=== PATIENT | male | born 1970 | race Caucasian/White ===

== ENCOUNTER 2017-06-01 04:01 | Emergency (ER) | payer MEDICAID, OTHER ==
[~2017-06-01] VITALS: Ht 177.8 cm; Wt 97.5 kg
[~2017-06-01 04:01] MED LIST: ACET-2158 PO; ASPI81TA3 PO; CIPR500T4 PO; HYDR-3498 PO
[2017-06-01 04:04] VITALS: Ht 177.8 cm; Wt 97.5 kg
[2017-06-01] MEDS ORDERED: SOD CHLORIDE 0.9% 1,000 ML IV ONE ×2 (05:00→07:00)
[2017-06-01 05:27] LABS: BASOPHILS % 0.2 % (0.0-2.0); HEMATOCRIT 45.8 % (42.0-52.0); LYMPHOCYTES # 0.8 10^3/ul (0.8-2.9); LYMPHOCYTES % 19.4 % (15.0-51.0); MEAN CORPUSCULAR HEMOGLOBIN 30.5 pg (29.0-33.0); MEAN CORPUSCULAR HGB CONC 34.9 g/dl (32.0-37.0); MEAN CORPUSCULAR VOLUME 87.2 fl (82.0-101.0); MEAN PLATELET VOLUME 10.4 fl (7.4-10.4); MONOCYTE # 0.4 10^3/ul (0.3-0.9); MONOCYTES % 9.6 % (0.0-11.0); NEUTROPHILS % 68.8 % (39.0-77.0); PLATELET COUNT 190 10^3/UL (140-415); RED BLOOD COUNT 5.25 10^6/ul (4.70-6.10); RED CELL DISTRIBUTION WIDTH 12.1 % (11.5-14.5); WHITE BLOOD COUNT 4.1 10^3/ul (4.8-10.8)
[2017-06-01 05:48] LABS: ALANINE AMINOTRANSFERASE 110 IU/L (13-69); ALBUMIN 3.7 g/dl (3.3-4.9); ALBUMIN/GLOBULIN RATIO 0.97; ALKALINE PHOSPHATASE 144 IU/L (42-121); ANION GAP 11 (8-16); ASPARTATE AMINO TRANSFERASE 78 IU/L (15-46); BILIRUBIN,INDIRECT 0.3 mg/dl (0-1.1); BILIRUBIN,TOTAL 0.3 mg/dl (0.2-1.3); BLOOD UREA NITROGEN 8 mg/dl (7-20); CALCIUM 8.7 mg/dl (8.4-10.2); CARBON DIOXIDE 29 mmol/L (21-31); CHLORIDE 97 mmol/L (97-110); CREATININE 0.98 mg/dl (0.61-1.24); GLUCOSE 97 mg/dl (70-220); POTASSIUM 3.8 mmol/L (3.5-5.1); SODIUM 133 mmol/L (135-144); TOTAL PROTEIN 7.5 g/dl (6.1-8.1)
--- NOTE | 2017-06-01 05:48 | RADRPT ---
PROCEDURE: XR Chest. CLINICAL INDICATION: Sepsis TECHNIQUE: A single AP view of the chest was obtained. COMPARISON: None. FINDINGS: No focal airspace opacification, pleural effusion or pneumothorax is seen. The cardiomediastinal si lhouette is within normal limits for size. The osseous structures are unremarkable. IMPRESSION: Unremarkable chest x-ray. RPTAT: HH .April Chaudhary MD, MD Date Time Electronically viewed and signed by .April Chaudhary MD, on 06/01/2017 05:48 .G/
[2017-06-01 05:51] LABS: ADD UMIC NO; UR ASCORBIC ACID NEGATIVE (NEGATIVE); UR BILIRUBIN (Dip) NEGATIVE (NEGATIVE); UR BLOOD (Dip) NEGATIVE (NEGATIVE); UR CLARITY CLEAR (CLEAR); UR COLOR YELLOW (YELLOW); UR GLUCOSE (Dip) NEGATIVE (NEGATIVE); UR KETONES (Dip) NEGATIVE (NEGATIVE); UR LEUKOCYTE ESTERASE (Dip) NEGATIVE Leu/ul (NEGATIVE); UR NITRITE (Dip) NEGATIVE (NEGATIVE); UR RBC 0 /HPF (0-5); UR SPECIFIC GRAVITY (Dip) 1.012 (1.003-1.030); UR TOTAL PROTEIN (Dip) NEGATIVE (NEGATIVE); UR UROBILINOGEN (Dip) NEGATIVE (NEGATIVE)
[2017-06-01 05:56] LABS: PARTIAL THROMBOPLASTIN TIME 26.4 Sec (25.0-35.0); PROTIME 13.2 Sec (12.2-14.2)
[2017-06-01 06:00] LABS: TROPONIN-I < 0.012 ng/ml (0.00-0.12)
[2017-06-01] MEDS ORDERED: ACET-141 PO (06:03)
--- NOTE | 2017-06-01 06:22 | RADRPT ---
PROCEDURE: CT Abdomen and pelvis without contrast. CLINICAL INDICATION: Abdominal pain TECHNIQUE: CT scan of the abdomen and pelvis without contrast was performed on a multidetector hig h-resolution CT scan. . Coronal and sagittal reformatted images were obtained from the axial [facility] e images. Standard CT scan of the abdomen pelvis without contrast protocols were performed. The total exam CTDI equals 15.88 mGy and the total exam DLP equals 967.04 mGy-cm. One or more of the following dose reduction techniques were used: - Automated exposure control. - Adjustment of the mA and/or kV according to patient size. Use of iterative reconstruction technique. COMPARISON: CT abdomen pelvis 01/26/2015 FINDINGS: Status post appendectomy. The stomach, small bowel and large bowel are unremarkable. There are multiple mildly enlarged lymph nodes in the right mid and lower abdominal mesentery with m inimal diameters ranging between 1 and 1.3 cm. Findings may represent mesenteric adenitis. Note that there is no evidence of intra-abdominal free fluid, free air or abscesses. The kidneys are normal in size without evidence of calcified renal calculi or hydronephrosis bilater ally. There is a 2.3 cm cyst involving the lateral right kidney unchanged. No other intra renal mass es bilaterally. The urinary bladder is unremarkable. The prostate is unremarkable. The liver spleen pancreas adrenal glands and gallbladder are unremarkable. No evidence of biliary du ctal dilation. The aorta is unremarkable. There is a small fat containing left inguinal hernia without herniated ethan wel or strangulation. Lung bases are unremarkable. Degenerative changes lower thoracic and lumbar spine without acute osseous findings are osteoblastic /osteolytic lesions. IMPRESSION: 1. Status post appendectomy. 2. Mild lymphadenopathy involving the right mid and lower abdominal mesentery may represent mesente dara lymphadenitis. No evidence of free air, free fluid or abscesses. 3. No evidence of calcified renal calculi or obstructive uropathy. RPTAT:AAJJ Physician Janette Date Time Electronically viewed and signed by Physician Janette on 06/01/2017 06:21 BM/
[2017-06-01] MEDS ORDERED: BELLADONNA/PHENOBARBITAL TAB PO STA (06:46)
[2017-06-01] MEDS ORDERED: LIDOCAINE/MYLANTA 40 ML BTL PO STA (06:46)
[2017-06-01] MEDS ORDERED: FAMOTIDINE 20 MG TAB PO STA (06:46)
[2017-06-01] MEDS ORDERED: IBUPROFEN 600 MG TAB PO ONE (07:00)
[2017-06-01] MEDS ORDERED: CIPR500T21 PO (08:44)
[2017-06-01] MEDS ORDERED: IBUP-1542 PO (08:44)
--- NOTE | 2017-06-01 09:04 | ERD ---
ER Documentation Chief Complaint Date/Time DATE: 06/01/17 TIME: 09:02 Chief Complaint epigastric pain x 3 days, R hand numbness x 10 days, fever on/ off x 5 days HPI 47-year-old man with 3 days of epigastric abdominal pain and fever for a few days, patient states he is also had a cough and diarrhea. He has had no blood per rectum, no melena, no vomiting, no chest pain or shortness of breath, no rash, no headache or blurry vision. Patient denies neck pain or stiffness. ROS All systems reviewed and are negative except as per history of present illness. Medications Home Meds Active Scripts Ibuprofen* (Ibuprofen*) 600 Mg Tablet, 600 MG PO Q8 for FEVER, #30 TAB Prov:CHRISTINA PRIETO MD 06/01/17 Ciprofloxacin/Ciprofloxa HCl (Ciprofloxacin ER 500 mg Tablet) 500 Mg Tbmp.24hr, 500 MG PO BID, #10 TAB Prov:CHRISTINA PRIETO MD 06/01/17 Reported Medications Acetaminophen* (Acetaminophen*) 500 MG Extra Strength Tablet, 500 MG PO Q4H Y for PAIN AND OR ELEVATED TEMP, TAB 06/01/17 Discontinued Reported Medications Aspirin* (Aspirin* Chew) 81 Mg Tab.chew, 81 MG PO DAILY, TAB.CHEW 02/05/15 Discontinued Scripts Ciprofloxacin Hcl* (Ciprofloxacin Hcl*) 500 Mg Tablet, 500 MG PO BID, #10 TAB Prov:ADAL BLUM MD 01/28/15 Acetaminophen (TYLENOL 325 MG TAB) 325 Mg Tab, 500 MG PO Q6H Y for PAIN LEVEL 1- 3 OR FEVER, #30 TAB Prov:ADAL BLUM MD 01/28/15 Hydrocodone Bit/Acetaminophen (Anexsia 5-325 Mg Tablet) 1 Tab Tab, 1 TAB PO Q4H Y for PAIN LEVEL 6-10, #20 Prov:ADAL BLUM MD 01/28/15 Allergies Allergies: Coded Allergies: Penicillins (Verified Allergy, Severe, hallucinatiion, dizziness, chest pain, 06/01/17) PMhx/Soc None Medical and Surgical Hx: pt denies Medical Hx, pt denies Surgical Hx History of Surgery: No Anesthesia Reaction: No Hx Neurological Disorder: No Hx Respiratory Disorders: No Hx Cardiac Disorders: No Hx Psychiatric Problems: No Hx Miscellaneous Medical Probl: No Hx Alcohol Use: No Hx Substance Use: No Hx Tobacco Use: Yes Smoking Status: Current every day smoker FmHx Family History: No diabetes Physical Exam Vitals Vital Signs Date Time Temp Pulse Resp B/P Pulse Ox O2 Delivery O2 Flow Rate FiO2 06/01/17 05:33 100.6 98 19 135/73 100 Room Air 06/01/17 05:05 103.3 101 20 100 Room Air 06/01/17 04:04 103.0 122 20 148/85 97 Physical Exam GENERAL: Well-developed, well-nourished,Appears dehydrated, febrile HEENT:Dry mucous membranes, pink conjunctiva, no cervical spine tenderness or step-off deformities, no goiter, no jaundice or icterus, extraocular movements intact without pain. No submandibular induration, and no pharyngeal erythema NEURO: Alert and oriented 3, cranial nerves II through XII intact bilaterally, pupils equal round reactive to light, no focal deficits or facial asymmetry, sensation intact distally Strength 5/5 in upper and lower extremities bilaterally CARDIAC: tachycardic and regular no murmurs rubs or gallops LUNGS: Clear bilaterally no wheezing crackles or stridor ABDOMEN: Soft nontender, no guarding, no rigidity, no rebound, no psoas sign no obturator sign. Normoactive bowel sounds SKIN: Warm and dry to touch, no abrasions, contusions, or hematomas, no lacerations, no ecchymosis, no target lesions, and without ulcers EXTREMITIES: No clubbing cyanosis or edema, calves are bilaterally symmetrical, no Homans sign, no popliteal cord sign. Distal pulses equal and bilateral PSYCH: Normal affect without agitation or irritability Result Diagram: 06/01/17 0510 06/01/17 0510 Results 24 hrs Laboratory Tests Test 06/01/17 05:00 06/01/17 05:10 Urine Color YELLOW Urine Clarity CLEAR Urine pH 7.0 Urine Specific Reynolds 1.012 Urine Ketones NEGATIVEmg/dL Urine Nitrite NEGATIVEmg/dL Urine Bilirubin NEGATIVEmg/dL Urine Urobilinogen NEGATIVEmg/dL Urine Leukocyte Esterase NEGATIVELeu/ul Urine Microscopic RBC 0/HPF Urine Microscopic WBC 0/HPF Urine Hemoglobin NEGATIVEmg/dL Urine Glucose NEGATIVEmg/dL Urine Total Protein NEGATIVEmg/dl White Blood Count 4.110^3/ul Red Blood Count 5.2510^6/ul Hemoglobin 16.0g/dl Hematocrit 45.8% Mean Corpuscular Volume 87.2fl Mean Corpuscular Hemoglobin 30.5pg Mean Corpuscular Hemoglobin Concent 34.9g/dl Red Cell Distribution Width 12.1% Platelet Count 94075^3/UL Mean Platelet Volume 10.4fl Neutrophils % 68.8% Lymphocytes % 19.4% Monocytes % 9.6% Eosinophils % 0.0% Basophils % 0.2% Nucleated Red Blood Cells % 0.0/100WBC Neutrophils # (Manual) 2.810^3/ul Lymphocytes # 0.810^3/ul Monocytes # 0.410^3/ul Eosinophils # 0.010^3/ul Basophils # 0.010^3/ul Nucleated Red Blood Cells # 0.010^3/ul Prothrombin Time 13.2Sec Prothrombin Time Ratio 1.0 INR International Normalized Ratio 1.00 Activated Partial Thromboplast Time 26.4Sec Sodium Level 133mmol/L Potassium Level 3.8mmol/L Chloride Level 97mmol/L Carbon Dioxide Level 29mmol/L Anion Gap 11 Blood Urea Nitrogen 8mg/dl Creatinine 0.98mg/dl Glucose Level 97mg/dl Lactic Acid Level 1.2mmol/L Calcium Level 8.7mg/dl Total Bilirubin 0.3mg/dl Direct Bilirubin 0.00mg/dl Indirect Bilirubin 0.3mg/dl Aspartate Amino Transf (AST/SGOT) 78IU/L Alanine Aminotransferase (ALT/SGPT) 110IU/L Alkaline Phosphatase 144IU/L Troponin I < 0.012ng/ml Total Protein 7.5g/dl Albumin 3.7g/dl Globulin 3.80g/dl Albumin/Globulin Ratio 0.97 Current Medications Medications (Trade) Dose Ordered Sig/Trisha Route PRN Reason Start Time Stop Time Status Last Admin Dose Admin Sodium Chloride 1,000 ml @ 1,000 mls/hr Q1H ONCE IV 06/01/17 05:00 06/01/17 05:59 DC 06/01/17 05:07 Sodium Chloride (NS) 1,000 ml @ 2,000 mls/hr Q30M ONCE IV 06/01/17 07:00 06/01/17 07:29 DC 06/01/17 07:09 Ibuprofen (Motrin) 600 mg ONCE ONCE PO 06/01/17 07:00 06/01/17 07:01 DC 06/01/17 06:58 Famotidine (Pepcid) 40 mg ONCE STAT PO 06/01/17 06:46 06/01/17 06:50 DC 06/01/17 06:58 Miscellaneous Medication (Gi Cocktail (2)) 40 ml ONCE STAT PO 06/01/17 06:46 06/01/17 06:50 DC 06/01/17 06:58 Belladonna/ Phenobarbital () 2 tab ONCE STAT PO 06/01/17 06:46 06/01/17 06:50 DC 06/01/17 06:58 Procedures/MDM IV line was established patient was placed on monitoring engineer rhythm strip revealed a sinus tachycardia at 110 bpm with upright P and T waves. Patient was febrile. I administered 3 L normal saline intravenously, ibuprofen 600 mg p.o., GI cocktail 50 cc p.o., and famotidine 40 mg p.o. with good response. EKG performed, read by me revealed a sinus tachycardia at 104 bpm, normal axis, right ventricular conduction delay with a QRS duration of 102 ms, no concerning ST elevations or depressions noted. CBC reveals a leukopenia 4.1, electrolytes are unremarkable, Liver function tests revealed transaminitis, elevated alkaline phosphatase otherwise unremarkable, lactic acid low at 1.2 One AP view of the chest performed, read by me reveals no acute infiltrates, normal mediastinum, sharp costophrenic and cardiac borders, no air under the diaphragm. Otherwise unremarkable chest x-ray. CT scan of the abdomen and pelvis was performed that was unremarkable. Please refer to radiologist dictation for full report. Influenza AB swabs were negative. Patient's vital signs are normal at this time is been rehydrated, imaging studies were unremarkable, lactic acid was low, and vital signs have completely normalized. Patient has defervesced and feels better. Differential diagnoses considered, included but not limited to acute coronary syndrome, pulmonary embolism, aortic dissection, abdominal aortic aneurysm, sepsis, stroke, meningitis, encephalitis, pneumonia, appendicitis, cholecystitis , bowel obstruction, pyelonephritis, nephrolithiasis, cystitis, as well as metabolic, hematologic, and electrolyte abnormalities. As well as abscess, cellulitis, fractures, and dislocations. Patient feels much better at this time, and vital signs are normal, symptoms have improved. I did give strict instructions to return to the ED if symptoms continue or worsen, patient will otherwise follow-up with primary care physician. Patient understood instructions and agreed to plan. Disclaimer: Inadvertent spelling and grammatical errors are likely due to EHR/ dictation software use and do not reflect on the overall quality of patient care. Also, please note that the electronic time recorded on this note does not necessarily reflect the actual time of the patient encounter. Departure Diagnosis: Primary Impression: Diarrhea Diarrhea type: unspecified type Qualified Code: R19.7 - Diarrhea, unspecified type Condition: Good Patient Instructions: Dehydration (6Y-Adult), Traveler's Diarrhea (6Y-Adult) CHRISTINA PRIETO MD Jun 01, 2017 09:04
[2017-06-01 09:05] VITALS: BP 118/69; PULSE 98; RESP 18; TEMP 98.9
--- NOTE | 2017-06-01 09:44 | RADRPT ---
PROCEDURE: US Abdomen Limited . CLINICAL INDICATION: Abdominal pain TECHNIQUE: Multiple real-time images were acquired of the patient's right upper quadrant abdomen u tilizing a high resolution transducer. COMPARISON: CT June 01, 2017 FINDINGS: The liver measures 15.5 cm and demonstrates a normal echogenicity. The gallbladder is filled with a moderate amount of bile. No shadowing echogenic stones or masses are seen in the gallbladder. The gallbladder wall is not thickened at 1.9 mm. No pericholecystic fluid is noted. The common bile duct measures 4.0 mm in diameter. The visualized portions of the proximal pancreas are unremarkable. Th e tail of the pancreas is not well visualized. Antegrade flow is seen in the portal vein. Right kidney measures 13.6 cm. Right kidney demonstrates a normal echogenicity. A 2.4 cm simple cys t is seen in the midportion of the right kidney No hydronephrosis, masses or stones are noted. IMPRESSION: 2.4 cm simple cyst in the midportion of the right kidney. Tail of the pancreas not well visualized. If characterization of this structure is needed repeat exa m or CT/MRI is recommended. RPTAT: AA .Ollie Bhagat MD, MD Date Time Electronically viewed and signed by .Ollie Bhagat MD, MD on 06/01/2017 09:44 .P/
== END 2017-06-01 10:00 | disposition home or self-care (01) ==
LOC: E/R 04:01
DX: R19.7 Diarrhea, unspecified (principal); F17.210 Nicotine dependence, cigarettes, uncomplicated; R40.2142 Coma scale, eyes open, spontaneous, at arrival to emergency department; R40.2252 Coma scale, best verbal response, oriented, at arrival to emergency department; R40.2362 Coma scale, best motor response, obeys commands, at arrival to emergency department; Z79.82 Long term (current) use of aspirin
CPT/HCPCS: 36415; 71010; 74176; 76705; 80053; 81003; 83605; 84484; 85025; 85610; 85730; 87040; 87086; 87400; 93005; J7030; Z7502; Z7610

== ENCOUNTER 2017-06-02 20:07 | Inpatient (IN) | payer MEDICAID ==
[~2017-06-02] VITALS: Ht 175.3 cm; Wt 96.7 kg
[~2017-06-02 20:07] MED LIST changes: +ACET-141 PO; -ACET-2158 PO; -ASPI81TA3 PO; +CIPR500T21 PO; -CIPR500T4 PO; -HYDR-3498 PO; +IBUP-1542 PO
[2017-06-02] MEDS ORDERED: KETOROLAC 30 MG INJ IV STA (20:54)
[2017-06-02] MEDS ORDERED: ACETAMINOPHEN 500 MG TAB PO STA (20:54)
[2017-06-02] MEDS ORDERED: SOD CHLORIDE 0.9% 1,000 ML IV ONE ×3 (21:00→23:30)
--- NOTE | 2017-06-02 21:39 | RADRPT ---
PROCEDURE: XR Chest 1 View. CLINICAL INDICATION: Shortness of breath. TECHNIQUE: AP view of the chest was obtained. COMPARISON: June 01, 2017 FINDINGS: The cardiomediastinal silhouette is within normal limits. No consolidations are identified. No pneu mothorax is seen. Osseous structures are intact. IMPRESSION: No visualized active disease. RPTAT: AA .Ollie Bhagat MD, Date Time Electronically viewed and signed by .Ollie Bhagat MD, MD on 06/02/2017 21:38 .P/
[2017-06-02 22:25] LABS: ABNORMAL IP MESSAGE 1; HEMATOCRIT 40.1 % (42.0-52.0); MEAN CORPUSCULAR HEMOGLOBIN 29.7 pg (29.0-33.0); MEAN CORPUSCULAR HGB CONC 34.9 g/dl (32.0-37.0); MEAN CORPUSCULAR VOLUME 85.1 fl (82.0-101.0); PLATELET COUNT 149 10^3/UL (140-415); POSITIVE DIFF @See below; RED BLOOD COUNT 4.71 10^6/ul (4.70-6.10); RED CELL DISTRIBUTION WIDTH 12.1 % (11.5-14.5); WHITE BLOOD COUNT 4.9 10^3/ul (4.8-10.8)
[2017-06-02 22:42] LABS: INR 1.09; PARTIAL THROMBOPLASTIN TIME 30.3 Sec (25.0-35.0); PROTIME 14.1 Sec (12.2-14.2); PT RATIO 1.1
[2017-06-02 22:49] LABS: ALBUMIN/GLOBULIN RATIO 0.94; ANION GAP 10 (8-16)
[2017-06-02 23:08] LABS: ALANINE AMINOTRANSFERASE 135 IU/L (13-69); ALBUMIN 3.3 g/dl (3.3-4.9); ALKALINE PHOSPHATASE 192 IU/L (42-121); ASPARTATE AMINO TRANSFERASE 128 IU/L (15-46); BILIRUBIN,INDIRECT 0.4 mg/dl (0-1.1); BILIRUBIN,TOTAL 0.4 mg/dl (0.2-1.3); BLOOD UREA NITROGEN 8 mg/dl (7-20); CALCIUM 8.2 mg/dl (8.4-10.2); CARBON DIOXIDE 26 mmol/L (21-31); CHLORIDE 95 mmol/L (97-110); CREATININE 0.82 mg/dl (0.61-1.24); GLUCOSE 139 mg/dl (70-220); POTASSIUM 3.6 mmol/L (3.5-5.1); SODIUM 127 mmol/L (135-144); TOTAL PROTEIN 6.8 g/dl (6.1-8.1); TROPONIN-I < 0.012 ng/ml (0.00-0.12)
[2017-06-02 23:52] LABS: ADD UMIC NO; UR ASCORBIC ACID NEGATIVE (NEGATIVE); UR BILIRUBIN (Dip) NEGATIVE (NEGATIVE); UR BLOOD (Dip) NEGATIVE (NEGATIVE); UR CLARITY CLEAR (CLEAR); UR COLOR YELLOW (YELLOW); UR GLUCOSE (Dip) NEGATIVE (NEGATIVE); UR KETONES (Dip) NEGATIVE (NEGATIVE); UR LEUKOCYTE ESTERASE (Dip) NEGATIVE Leu/ul (NEGATIVE); UR NITRITE (Dip) NEGATIVE (NEGATIVE); UR SPECIFIC GRAVITY (Dip) 1.005 (1.003-1.030); UR TOTAL PROTEIN (Dip) NEGATIVE (NEGATIVE); UR UROBILINOGEN (Dip) NEGATIVE (NEGATIVE)
[2017-06-03] VITALS (13 sets, daily range): BP systolic 124–144; BP diastolic 73–94; PULSE 72–92; RESP 16–19; TEMP 97.1; Ht 175.3 cm; Wt 96.7 kg
[2017-06-03] MEDS ORDERED: AZTREONAM 1 GM/NS (PMX) 50 ML IVPB ONE
[2017-06-03] MEDS ORDERED: VANCOMYCIN 1 GM (PMX) 250 ML IVPB SCH
--- NOTE | 2017-06-03 | ERA ---
ER Documentation Chief Complaint Date/Time DATE: 06/02/17 Chief Complaint Fever and chills x 1 week HPI The patient is a 47-year-old male who presents to the Emergency Department with complaint of fever and chills for the past week. The patient reports that his symptoms initially began on Tuesday night, with onset of myalgias, fevers, chills. He admits to mild associated cough and diarrhea. Otherwise, he denies any rhinorrhea, sore throat, ear pain, neck pain, neck stiffness, new rashes. He admits to intermittent abdominal pain, though none at this time. Denies black or bloody stools, dysuria, hematuria, flank pain or vomiting. Denies chest pain, palpitations, shortness of breath, lower extremity swelling. Denies visual changes, diplopia, blurred vision, vision loss. Denies headache or dizziness. Denies any sick contacts with similar symptoms. Denies recent travel , stream water exposure, immunocompromised state or recent antibiotic use. He admits to recent unprotected sexual activity with a new female, though denies any testicular pain, testicular swelling or urethral discharge. Of note, the patient was seen in the Emergency Department last night, at which time CT abdomen and pelvis was performed, which revealed mild lymphadenopathy involving the right mid and lower abdominal mesentery, possibly representing mesenteric lymphadenitis. Otherwise, no evidence of free air, free fluid, abscesses, with no significant acute pathology noted. Chest x-ray, with no infiltrates. Influenza A/B were negative. The patient was ultimately discharged home with prescriptions for Ciprofloxacin and Ibuprofen. The patient reports that he has been taking the medications, with no significant relief. ROS All systems reviewed and are negative except as per history of present illness. Medications Home Meds Active Scripts Ibuprofen* (Ibuprofen*) 600 Mg Tablet, 600 MG PO Q8 for FEVER, #30 TAB Prov:CHRISTINA PRIETO MD 06/01/17 Ciprofloxacin/Ciprofloxa HCl (Ciprofloxacin ER 500 mg Tablet) 500 Mg Tbmp.24hr, 500 MG PO BID, #10 TAB Prov:CHRISTINA PRIETO MD 06/01/17 Reported Medications Acetaminophen* (Acetaminophen*) 500 MG Extra Strength Tablet, 500 MG PO Q4H Y for PAIN AND OR ELEVATED TEMP, TAB 06/01/17 Discontinued Reported Medications Aspirin* (Aspirin* Chew) 81 Mg Tab.chew, 81 MG PO DAILY, TAB.CHEW 5/20/15 Discontinued Scripts Ciprofloxacin Hcl* (Ciprofloxacin Hcl*) 500 Mg Tablet, 500 MG PO BID, #10 TAB Prov:ADAL BLUM MD 01/28/15 Acetaminophen (TYLENOL 325 MG TAB) 325 Mg Tab, 500 MG PO Q6H Y for PAIN LEVEL 1- 3 OR FEVER, #30 TAB Prov:ADAL BLUM MD 01/28/15 Hydrocodone Bit/Acetaminophen (Anexsia 5-325 Mg Tablet) 1 Tab Tab, 1 TAB PO Q4H Y for PAIN LEVEL 6-10, #20 Prov:ADAL BLUM MD 01/28/15 Allergies Allergies: Coded Allergies: Penicillins (Verified Allergy, Severe, hallucinatiion, dizziness, chest pain, 06/01/17) PMhx/Soc History of Surgery: Yes (Appy) Anesthesia Reaction: No Hx Neurological Disorder: No Hx Respiratory Disorders: No Hx Cardiac Disorders: No Hx Psychiatric Problems: No Hx Miscellaneous Medical Probl: No Hx Alcohol Use: No Hx Substance Use: No Hx Tobacco Use: Yes Smoking Status: Current every day smoker Physical Exam Vitals Vital Signs Date Time Temp Pulse Resp B/P Pulse Ox O2 Delivery O2 Flow Rate FiO2 06/02/17 20:10 103.9 138 28 162/94 98 Physical Exam GENERAL: Well-developed, well-nourished, male, in no acute distress. Non-toxic. HEENT: Head is normocephalic, atraumatic. No scleral pallor or icterus. Pupils equal, round and reactive to light. Extraocular movements intact. Conjunctiva pink. Bilaterally tympanic membranes are clear with no evidence of erythema, effusion or dulling of the light reflex. Moist mucous membranes. Posterior pharynx is erythematous with exudates noted bilaterally. Uvula is midline. No trismus. No stridor. No excessive drooling. Phonation is normal. No submandibular swelling. No brawny induration. NECK: Supple. No masses, no tenderness. Tender anterior cervical lymphadenopathy. Trachea midline. No nuchal rigidity. No meningismus. RESPIRATORY: Lungs are clear to auscultation bilaterally. No rales, rhonchi or wheezing. Equal breath sounds. Normal expiratory effort. CARDIOVASCULAR: Tachycardic. Regular rhythm. S1 and S2 normal. Distal pulses are palpable, 2+ bilaterally. Capillary refill is less than 2 seconds. GASTROINTESTINAL: Abdomen is soft, non-tender, and non-distended. No guarding, no rebound tenderness. Normal bowel sounds. No gross peritonitis. FLANK: No CVA tenderness. BACK: No midline tenderness. EXTREMITIES: No clubbing, cyanosis, or edema. Normal skin perfusion. Moving all extremities. Muscle tone is normal. No focal swelling or erythema. NEUROLOGIC: The patient is alert, awake, and oriented x 3. No focal neurologic deficits. INTEGUMENT: Skin is intact. Warm and dry. No rashes, no petechiae present. PSYCHIATRIC: Cooperative. Appropriate. Result Diagram: 06/02/17213906/02/172139 Results 24 hrs Laboratory Tests Test 06/02/17 21:40 06/02/17 21:45 06/02/17 23:26 White Blood Count 4.910^3/ul Red Blood Count 4.7110^6/ul Hemoglobin 14.0g/dl Hematocrit 40.1% Mean Corpuscular Volume 85.1fl Mean Corpuscular Hemoglobin 29.7pg Mean Corpuscular Hemoglobin Concent 34.9g/dl Red Cell Distribution Width 12.1% Platelet Count 77306^3/UL Mean Platelet Volume 11.0fl Neutrophils % % Lymphocytes % % Monocytes % % Eosinophils % % Basophils % % Nucleated Red Blood Cells % 0.0/100WBC Neutrophils # 10^3/ul Lymphocytes # 10^3/ul Monocytes # 10^3/ul Eosinophils # 10^3/ul Basophils # 10^3/ul Nucleated Red Blood Cells # 10^3/ul Prothrombin Time 14.1Sec Prothrombin Time Ratio 1.1 INR International Normalized Ratio 1.09 Activated Partial Thromboplast Time 30.3Sec Sodium Level 127mmol/L Potassium Level 3.6mmol/L Chloride Level 95mmol/L Carbon Dioxide Level 26mmol/L Anion Gap 10 Blood Urea Nitrogen 8mg/dl Creatinine 0.82mg/dl Glucose Level 139mg/dl Calcium Level 8.2mg/dl Total Bilirubin 0.4mg/dl Direct Bilirubin 0.00mg/dl Indirect Bilirubin 0.4mg/dl Aspartate Amino Transf (AST/SGOT) 128IU/L Alanine Aminotransferase (ALT/SGPT) 135IU/L Alkaline Phosphatase 192IU/L Troponin I < 0.012ng/ml Total Protein 6.8g/dl Albumin 3.3g/dl Globulin 3.50g/dl Albumin/Globulin Ratio 0.94 Monoscreen Negative Lactic Acid Level 2.2mmol/L Urine Color YELLOW Urine Clarity CLEAR Urine pH 6.0 Urine Specific [place] 1.005 Urine Ketones NEGATIVEmg/dL Urine Nitrite NEGATIVEmg/dL Urine Bilirubin NEGATIVEmg/dL Urine Urobilinogen NEGATIVEmg/dL Urine Leukocyte Esterase NEGATIVELeu/ul Urine Hemoglobin NEGATIVEmg/dL Urine Glucose NEGATIVEmg/dL Urine Total Protein NEGATIVEmg/dl Current Medications Medications (Trade) Dose Ordered Sig/Trisha Route PRN Reason Start Time Stop Time Status Last Admin Dose Admin Ketorolac Tromethamine (Toradol) 30 mg ONCE STAT IV 06/02/17 20:54 06/02/17 20:56 DC 06/02/17 21:24 Acetaminophen 1000 mg 1,000 mg ONCE STAT PO 06/02/17 20:54 06/02/17 20:56 DC 06/02/17 21:24 Sodium Chloride 1,000 ml @ 1,000 mls/hr Q1H ONCE IV 06/02/17 21:00 06/02/17 21:59 DC 06/02/17 21:25 Sodium Chloride 1,000 ml @ 1,000 mls/hr Q1H ONCE IV 06/02/17 23:30 06/03/17 00:29 DC 06/03/17 00:38 Sodium Chloride 1,000 ml @ 1,000 mls/hr Q1H ONCE IV 06/02/17 23:30 06/03/17 00:29 DC 06/03/17 00:38 Aztreonam 50 ml @ 100 mls/hr ONCE ONCE IVPB 06/03/17 00:00 06/03/17 00:29 DC 06/03/17 00:50 Vancomycin HCl (Vancocin) 250 ml @ 125 mls/hr ONCE IVPB 06/03/17 00:00 06/03/17 01:59 DC 06/03/17 01:47 Procedures/MDM The patient's case was reviewed and discussed with Dr. Velez, who agrees with the plan of care including labs, treatment and imaging as appropriate. He recommends admission for severe sepsis and bacteremia. DIAGNOSTIC TESTS AND INTERPRETATION: PROCEDURE: XR Chest 1 View. TECHNIQUE: AP view of the chest was obtained. COMPARISON: June 01, 2017 FINDINGS: The cardiomediastinal silhouette is within normal limits. No consolidations are identified. No pneumothorax is seen. Osseous structures are intact. IMPRESSION: No visualized active disease. .Ollie Bhagat MD, MD Date Time Electronically viewed and signed by .Ollie Bhagat MD, MD on 06/02/2017 21:38 Microbiology RAPID STREP ANTIGEN BY EIA Final RAPID STREP ANTIGEN ,EIA NEGATIVE (Ref Range Neg) EKG Reviewed and interpreted by: Dr. Velez EKG Interpretation: Sinus tachycardia. [address] bpm[address] Non-specific ST/T changes. No LBBB. EMERGENCY DEPARTMENT COURSE: IV access established by nursing staff. Crystalloid fluids (30 cc/kg), Tylenol and Toradol administered. Patient simon- cultured. Laboratory tests, EKG, chest x-ray, stool tests, rapid strep and throat culture ordered. MEDICAL DECISION MAKING: This is a 47-year-old male presenting to the Emergency Department with fever and chills for the past week. Patient was seen in the Emergency Department yesterday for similar symptoms, including those of myalgias , mild diarrhea, and cough. After laboratory testing and imaging, the patient was discharged home with a prescription for Ciprofloxacin, which he has been taking as directed. However, he returns today due to persistent fevers and myalgias. On presentation, patient was noted to be febrile, with temperature of 103.9F, and tachycardic. Physical examination notable for an erythematous posterior pharynx, with exudates noted bilaterally. He had anterior cervical lymphadenopathy. Otherwise, no trismus, stridor no stridor, no excessive drooling. Phonation is normal. He denies any sore throat. No evidence of peritonsillar abscess, Robert's angina, epiglottis, candidiasis. Patient denies any neck pain or neck stiffness. His neck was supple on examination, and he had no altered mentation, no meningismus, no nuchal rigidity. No clinical evidence of meningitis. Chest x-ray with no focal infiltrate/consolidation, no findings of pneumonia. Abdomen and pelvis CT performed yesterday, with no acute intraabdominal or pelvic pathology noted. Patient has a benign abdominal examination, with no guarding, no rebound tenderness, no peritoneal signs. No evidence of acute/surgical abdomen. Doubt diverticulitis, exam inconsistent. Doubt ischemic bowel, no pain out of proportion to examination. Influenza A/B testing performed yesterday were noted to be negative. Rapid strep today was negative. Throat culture sent. Monoscreen negative. Stool tests ordered, and pending as patient has not been able to provide samples. Upon review of patient' s records from yesterday, patient's blood cultures grew gram negative rods. Patient was simon-cultured. Lactic acid sent (2.2). Presentation consistent with severe sepsis, bacteremia, pharyngitis, diarrhea. At this time, the patient will be admitted to Telemetry, under the care of Dr. Will, for further evaluation and management. Patient's infectious symptoms have not stabilized and the patient is at risk of rapid decompensation. The patient will be admitted for careful hydration, antibiotic therapy, and infectious source control. Severe Sepsis Assessment: Infectious Source: Bacteremia. Pharyngitis. Diarrhea. End organ damage indicated by: Lactate > 2.0 mmol/L Severe Sepsis Management: Blood Cultures X 2 before broad spectrum antibiotics initiated. 30 ml/kg NS bolus Completed Initial Lactate: 2.2 Repeat Lactate Pending Critical Care: Time: 40 minutes Treatments/Evaluations: Emergent fluid management, while maintaining close respiratory support. Immediate broad spectrum antibiotic therapy. Simultaneous assessment for possible sources in order to direct therapy. Consideration for invasive and chemical support to prevent respiratory or cardiac collapse. Patient does not have septic shock. Accepting Care Team: Current data and ongoing care discussed by Dr. Velez with Dr. Will. Primary Provider: Dr. Will Departure Diagnosis: Primary Impression: Severe sepsis Additional Impressions: Bacteremia Pharyngitis Qualified Code: J02.9 - Pharyngitis, unspecified etiology Hyponatremia Transaminitis Diarrhea Qualified Code: R19.7 - Diarrhea, unspecified type Condition: Stable TOMY MEYER PA-C Jun 03, 2017 00:00 TOMY MEYER PA-C Jun 03, 2017 00:00
[2017-06-03] MEDS ORDERED: morphine 2 MG INJ IV PRN (04:30)
[2017-06-03] MEDS ORDERED: ONDANSETRON 4 MG INJ IV PRN (04:30)
--- NOTE | 2017-06-03 06:14 | ERA ---
ER Documentation Chief Complaint Date/Time DATE: 06/03/17 TIME: 06:11 Chief Complaint Fever and chills x 1 week HPI The patient is a 47-year-old male, presenting to the ER with fever for 1 week, diarrhea for the last 3 days. He was seen in the ER yesterday had blood culture , treated and discharged. He came back today because he did not feel better. He was initially seen by the [facility]. He denies hematochezia, cough, sore throat, neck pain, chest pain. He had abdominal pain yesterday but denies any abdominal pain today, denied dysuria. He does not smoke nor drink or use any illicit drug, denies any history of IV drug abuse Past medical history: None Past surgical history appendectomy ROS All systems reviewed and are negative except as per history of present illness. Medications Home Meds Active Scripts Ibuprofen* (Ibuprofen*) 600 Mg Tablet, 600 MG PO Q8 for FEVER, #30 TAB Prov:CHRISTINA PRIETO MD 06/01/17 Ciprofloxacin/Ciprofloxa HCl (Ciprofloxacin ER 500 mg Tablet) 500 Mg Tbmp.24hr, 500 MG PO BID, #10 TAB Prov:CHRISTINA PRIETO MD 06/01/17 Reported Medications Acetaminophen* (Acetaminophen*) 500 MG Extra Strength Tablet, 500 MG PO Q4H Y for PAIN AND OR ELEVATED TEMP, TAB 06/01/17 Discontinued Reported Medications Aspirin* (Aspirin* Chew) 81 Mg Tab.chew, 81 MG PO DAILY, TAB.CHEW 02/05/15 Discontinued Scripts Ciprofloxacin Hcl* (Ciprofloxacin Hcl*) 500 Mg Tablet, 500 MG PO BID, #10 TAB Prov:ADAL BLUM MD 01/28/15 Acetaminophen (TYLENOL 325 MG TAB) 325 Mg Tab, 500 MG PO Q6H Y for PAIN LEVEL 1- 3 OR FEVER, #30 TAB Prov:ADAL BLUM MD 01/28/15 Hydrocodone Bit/Acetaminophen (Anexsia 5-325 Mg Tablet) 1 Tab Tab, 1 TAB PO Q4H Y for PAIN LEVEL 6-10, #20 Prov:ADAL BLUM MD 01/28/15 Allergies Allergies: Coded Allergies: Penicillins (Verified Allergy, Severe, hallucinatiion, dizziness, chest pain, 06/01/17) PMhx/Soc History of Surgery: Yes (appendectomy) Anesthesia Reaction: No Hx Neurological Disorder: Yes (right arm pins and needles, numbness) Hx Respiratory Disorders: Yes (sob at times; feels like choking) Hx Cardiac Disorders: No Hx Psychiatric Problems: No Hx Miscellaneous Medical Probl: No Hx Alcohol Use: No Hx Substance Use: No Hx Tobacco Use: No Smoking Status: Never smoker Physical Exam Vitals Vital Signs Date Time Temp Pulse Resp B/P Pulse Ox O2 Delivery O2 Flow Rate FiO2 06/02/17 20:10 103.9 138 28 162/94 98 Physical Exam Const: No acute distress. Head: Atraumatic. Eyes: Normal Conjunctiva. ENT: Normal External Ears, Nose and Erythematous pharynx Neck: Full range of motion. No meningismus. Resp: Clear to auscultation bilaterally. Cardio: Regular rate and rhythm. Abd: Soft, non distended, normal bowel sounds, non tender. Skin: No petechiae or rashes. Back: No midline or flank tenderness. Ext: No cyanosis, or edema. Neur: Awake and alert. No focal deficit Psych: Normal Mood and Affect. Result Diagram: 06/02/17213906/02/172139 Results 24 hrs Laboratory Tests Test 06/02/17 21:40 06/02/17 21:45 06/02/17 23:26 White Blood Count 4.910^3/ul Red Blood Count 4.7110^6/ul Hemoglobin 14.0g/dl Hematocrit 40.1% Mean Corpuscular Volume 85.1fl Mean Corpuscular Hemoglobin 29.7pg Mean Corpuscular Hemoglobin Concent 34.9g/dl Red Cell Distribution Width 12.1% Platelet Count 56298^3/UL Mean Platelet Volume 11.0fl Neutrophils % % Lymphocytes % % Monocytes % % Eosinophils % % Basophils % % Nucleated Red Blood Cells % 0.0/100WBC Neutrophils # 10^3/ul Lymphocytes # 10^3/ul Monocytes # 10^3/ul Eosinophils # 10^3/ul Basophils # 10^3/ul Nucleated Red Blood Cells # 10^3/ul Prothrombin Time 14.1Sec Prothrombin Time Ratio 1.1 INR International Normalized Ratio 1.09 Activated Partial Thromboplast Time 30.3Sec Sodium Level 127mmol/L Potassium Level 3.6mmol/L Chloride Level 95mmol/L Carbon Dioxide Level 26mmol/L Anion Gap 10 Blood Urea Nitrogen 8mg/dl Creatinine 0.82mg/dl Glucose Level 139mg/dl Calcium Level 8.2mg/dl Total Bilirubin 0.4mg/dl Direct Bilirubin 0.00mg/dl Indirect Bilirubin 0.4mg/dl Aspartate Amino Transf (AST/SGOT) 128IU/L Alanine Aminotransferase (ALT/SGPT) 135IU/L Alkaline Phosphatase 192IU/L Troponin I < 0.012ng/ml Total Protein 6.8g/dl Albumin 3.3g/dl Globulin 3.50g/dl Albumin/Globulin Ratio 0.94 Monoscreen Negative Lactic Acid Level 2.2mmol/L Urine Color YELLOW Urine Clarity CLEAR Urine pH 6.0 Urine Specific [place] 1.005 Urine Ketones NEGATIVEmg/dL Urine Nitrite NEGATIVEmg/dL Urine Bilirubin NEGATIVEmg/dL Urine Urobilinogen NEGATIVEmg/dL Urine Leukocyte Esterase NEGATIVELeu/ul Urine Hemoglobin NEGATIVEmg/dL Urine Glucose NEGATIVEmg/dL Urine Total Protein NEGATIVEmg/dl Current Medications Medications (Trade) Dose Ordered Sig/Trisha Route PRN Reason Start Time Stop Time Status Last Admin Dose Admin Ketorolac Tromethamine (Toradol) 30 mg ONCE STAT IV 06/02/17 20:54 06/02/17 20:56 DC 06/02/17 21:24 Acetaminophen 1000 mg 1,000 mg ONCE STAT PO 06/02/17 20:54 06/02/17 20:56 DC 06/02/17 21:24 Sodium Chloride 1,000 ml @ 1,000 mls/hr Q1H ONCE IV 06/02/17 21:00 06/02/17 21:59 DC 06/02/17 21:25 Sodium Chloride 1,000 ml @ 1,000 mls/hr Q1H ONCE IV 06/02/17 23:30 06/03/17 00:29 DC 06/03/17 00:38 Sodium Chloride 1,000 ml @ 1,000 mls/hr Q1H ONCE IV 06/02/17 23:30 06/03/17 00:29 DC 06/03/17 00:38 Aztreonam 50 ml @ 100 mls/hr ONCE ONCE IVPB 06/03/17 00:00 06/03/17 00:29 DC 06/03/17 00:50 Vancomycin HCl (Vancocin) 250 ml @ 125 mls/hr ONCE IVPB 06/03/17 00:00 06/03/17 01:59 DC 06/03/17 01:47 Procedures/MDM [place] [id number] Radiology Main Line: [phone] DIAGNOSTIC IMAGING REPORT Patient: BEATRICE MOTLEY : 1970 Age: 47 Sex: M MR #: [id number] DOS: 06/02/172053 Ordering MD: TOMY MEYER PA-C Location: [facility] Room/Bed: PROCEDURE: XR Chest 1 View. CLINICAL INDICATION: Shortness of breath. TECHNIQUE: AP view of the chest was obtained. COMPARISON: June 01, 2017 FINDINGS: The cardiomediastinal silhouette is within normal limits. No consolidations are identified. No pneumothorax is seen. Osseous structures are intact. IMPRESSION: No visualized active disease. RPTAT: AA .Ollie Bhagat MD, MD Date Time Electronically viewed and signed by .Ollie Bhagat MD, MD on 06/02/2017 21:38 .P/ CC: TOMY MEYER PA-C MEDICAL MAKING DECISION: The patient is a 47-year-old male, presenting with acute severe sepsis. The blood culture obtained yesterday showed gram negative magnolia. He was treated with normal saline 30 mL/g IV, aztreonam IV, vancomycin IV , acetaminophen p.o. for fever with good response The differential diagnoses considered include but are not limited to pneumonia, cystitis, pyelonephritis, endocarditis, influenza Admit MDM: Patient's infectious symptoms have not stabilized and the patient is at risk of rapid decompensation. The patient will be admitted for careful hydration, antibiotic therapy, and infectious source control. Severe Sepsis criteria: Infectious source: Unknown End organ damage indicated by: Lactate > 2.0 mmol/L Sepsis Management: Time of recognition of severe sepsis/septic shock:21:50 Within 3 hours of recognition: Blood cultures x 2 before broad-spectrum antibiotics: Yes 30 ml/kg NS bolus completed Initial lactate 2.2 Repeat lactate pending Critical Care: Critical care time 35 minutes excluding billable procedure Emergent fluid management while maintaining close respiratory support. Provision of immediate and broad-spectrum antibiotic therapy. Simultaneous assessment for possible sources in order to direct targeted therapy. Consideration for invasive and chemical support to prevent cardiopulmonary collapse. Septic Shock Assessment: Any lactic acid > 4.0 no Persistent hypotension (SBP < 90 or 40 mmHg drop, MAP < 65) despite 30 mL/kg IV fluid bolusno Departure Diagnosis: Primary Impression: Severe sepsis Additional Impressions: Transaminitis Bacteremia Diarrhea Qualified Code: R19.7 - Diarrhea, unspecified type Hyponatremia Pharyngitis Qualified Code: J02.9 - Pharyngitis, unspecified etiology Condition: Stable Comments I discussed the findings with the patient. I discussed the patient with the on- call hospitalist Dr. Will who was made aware of the lab, the treatment, the patient condition. The patient is admitted to telemetry POPPY SETHI MD Jun 03, 2017 06:14
--- NOTE | 2017-06-03 07:00 | HP ---
Date/Time of Note Date/Time of Note DATE: 06/03/17 TIME: 06:47 Assessment/Plan VTE Prophylaxis VTE Prophylaxis Intervention: SCD's Lines/Catheters IV [facility]from [facility] Peripheral IV Urinary Cath still in place: No Assessment/Plan Assessment/Plan 1. Sepsis, with GNR bacteremia -no UTI or pneumonia on the chest x-ray. Throat culture with negative rapid strep antigen. -will place on broad-spectrum IV antibiotics -Wound culture and will repeat blood culture. -ID consult 2. Hyponatremia -NS IVF for now 3. Elevated transaminases - RUQ ultrasound and CT abdomen/pelvis nondiagnostic -Check hepatitis panel -Monitor closely HPI/ROS Admit Date/Time Admit Date/Time Jun 03, 2017 at 01:39 Hx of Present Illness This is a 47-year-old male who presented to the emergency department complaining of fever, diarrhea, epigastric abdominal pain, myalgia and right upper extremity tingling/numbness. Patient was evaluated in our ER a couple of days ago after he presented with almost similar complaints. At that time blood culture was done which came back positive for gram-negative rods. When he presented to the ER team, was febrile with a temperature of almost 104 and tachycardic with a heart rate of 138. Labs shows a sodium of 127, AST 128, ALT 135, alk phos 192. WBC is 4.9. Urinalysis without UTI, and a chest x-ray was no active cardiopulmonary disease. CT abdomen/pelvis from 2 days ago showed possible mesenteric lymphadenitis. . PMH/Family/Social Social History Smoking Status: Never smoker Exam/Review of Systems Vital Signs Vitals Vital Signs Date Time Temp Pulse Resp B/P Pulse Ox O2 Delivery O2 Flow Rate FiO2 06/03/17 04:17 80 06/03/17 04:15 98.4 18 127/84 97 06/03/17 02:35 Room Air Intake and Output 06/02/17 06/02/17 06/03/17 15:00 23:00 07:00 Intake Total 600 ml Output Total 400 ml Balance 200 ml Labs Result Diagram: 06/02/17213906/02/172139 Medications Medications Current Medications Acetaminophen (Tylenol Tab) 500 mg Q6H PRN PO PAIN AND OR ELEVATED TEMP; Start 06/03/17 at 04:30 Heparin Sodium (Porcine) (Heparin (5000 Units/0.5 ml)) 5,000 unit Q12 SC ; Start 06/03/17 at 09:00 Morphine Sulfate (morphine) 2 mg Q4H PRN IV PAIN; Start 06/03/17 at 04:30 Ondansetron HCl (Zofran Inj) 4 mg Q6H PRN IV NAUSEA AND/OR VOMITING; Start at 04:30 MARIANN HICKS MD Jun 03, 2017 06:57
[2017-06-03] MEDS: ACETAMINOPHEN 500 MG TAB PO PRN (07:22)
[2017-06-03 07:51] LABS: BASOPHILS % 0.2 % (0.0-2.0); HEMATOCRIT 41.9 % (42.0-52.0); HEMOGLOBIN 14.6 g/dl (14.0-18.0); LYMPHOCYTES # 0.9 10^3/ul (0.8-2.9); LYMPHOCYTES % 19.3 % (15.0-51.0); MEAN CORPUSCULAR HEMOGLOBIN 30.3 pg (29.0-33.0); MEAN CORPUSCULAR HGB CONC 34.8 g/dl (32.0-37.0); MEAN CORPUSCULAR VOLUME 86.9 fl (82.0-101.0); MEAN PLATELET VOLUME 10.9 fl (7.4-10.4); MONOCYTE # 0.4 10^3/ul (0.3-0.9); MONOCYTES % 7.9 % (0.0-11.0); NEUTROPHIL # 3.3 10^3/ul (1.6-7.5); NEUTROPHILS % 71.3 % (39.0-77.0); PLATELET COUNT 141 10^3/UL (140-415); POSITIVE DIFF @See below; RED BLOOD COUNT 4.82 10^6/ul (4.70-6.10); RED CELL DISTRIBUTION WIDTH 12.1 % (11.5-14.5); WHITE BLOOD COUNT 4.6 10^3/ul (4.8-10.8)
[2017-06-03 08:19] LABS: ALBUMIN 3.3 g/dl (3.3-4.9); ALBUMIN/GLOBULIN RATIO 0.97; BILIRUBIN,INDIRECT 0.5 mg/dl (0-1.1); BILIRUBIN,TOTAL 0.5 mg/dl (0.2-1.3); CALCIUM 8.2 mg/dl (8.4-10.2); CREATININE 0.8 mg/dl (0.61-1.24); MAGNESIUM 2.1 mg/dl (1.7-2.5); PHOSPHORUS 2.7 mg/dl (2.5-4.9); POTASSIUM 3.8 mmol/L (3.5-5.1); TOTAL PROTEIN 6.7 g/dl (6.1-8.1)
[2017-06-03] MEDS: MEROPENEM 500MG/50 ML (PMX) 50 ML IVPB SCH ×2 (08:39→14:47)
[2017-06-03] MEDS: HEPARIN 5,000 UNIT/0.5 ML VIAL SC SCH ×2 (08:43→21:31)
[2017-06-03] MEDS: HYDROCODONE/APAP (5/325) TAB PO PRN ×2 (09:38→16:19)
[2017-06-03] MEDS: SOD CHLORIDE 0.9% 1,000 ML IV SCH ×2 (11:11→23:50)
[2017-06-03] MEDS ORDERED: BARIUM SULF 2% 450 ML BTL (BERRY SMOOTHIE) PO ONE (14:00)
[2017-06-03] MEDS: NYSTATIN SUSP 5 ML CUP PO SCH ×2 (16:56→21:31)
--- NOTE | 2017-06-03 20:45 | CONS ---
DATE OF ADMISSION: 06/03/2017 DATE OF CONSULTATION: 06/03/2017 REQUESTING PHYSICIAN: Dr. Russell Will, thank you for this consultation. HISTORY OF PRESENT ILLNESS: This is a well-developed, well- nourished, middle-aged, man, with a history of penicillin allergy and appendectomy. The patient is a nonsmoker, nondrinker. He is with 2 kids. Acutely he was admitted with diarrhea and fever, temperature of 103.9, pulse 138, respirations 28, blood pressure 162/94, and saturation 98 percent on room air. LABORATORY: WBC 4.9, H and H 14 and 40.1, platelets 149. Negative mono screen. Sodium 127, potassium 3.6, BUN 8, creatinine 0.82, lactic acid 2.2, decreased today to 1, normal bilirubin, AST 128, ALT 135, alk phos 192, negative troponin. Urinalysis negative for nitrite, leukocyte esterase. MICROBIOLOGY: Cultures are pending. Blood culture on June 01 grew gram-negative rods. Influenza swab was negative. DIAGNOSTIC DATA: The patient has a CT of the abdomen and pelvis that revealed status post appendectomy, mild lymphadenopathy involving right middle lower abdominal mesentery, no free air, fluid or abscess. No renal calculi or obstructive uropathy. Chest x-ray on June 01 was unremarkable. Gallbladder ultrasound revealed 2.4 cm cyst in the midportion of the right kidney, tail of pancreas known well-visualized. HISTORICAL EVENTS: The patient had a rapid strep antigen test that was negative. Urine culture negative. Stool for C difficile came back negative. He is currently on meropenem, status post vancomycin and aztreonam. ALLERGIES: AGAIN PATIENT IS ALLERGIC TO PENICILLIN. PAST MEDICAL HISTORY: Denies. SOCIAL HISTORY: As per history of present illness. No recent travel outside of the formerly [facility]. No sick contact. PHYSICAL EXAMINATION: GENERAL: This is well nourished, well developed, middle-aged, man, who is alert, in no distress. HEENT: Head atraumatic, normocephalic. Sclerae anicteric. Buccal mucosa dry. Patient has white thrush on his tongue. NECK: Supple and trachea midline. No palpable cervical nodes. CHEST: Chest rise symmetrical. Breath sounds clear to auscultation. HEART: S1, S2. Regular. ABDOMEN: Soft. Bowel sounds present. EXTREMITIES: Without cyanosis, edema. SKIN: No jaundice, rashes, cyanosis. NEUROMUSCULAR: No focal neurologic deficits. No joint swelling, or redness. DIAGNOSTIC IMPRESSION: A 47-year-old man admitted with sepsis, gram-negative magnolia bacteremia. Patient with significant transaminitis with a CT of the abdomen and pelvis on June 01 revealed no acute abnormality, but mild lymphadenopathy in the right middle and lower abdominal mesentery. The patient is on appropriate antibiotics. Repeat blood cultures negative. We will continue him on current regimen, recommend Gastroenterology evaluation, will check hepatitis panel and HIV status, add oral Nystatin. Consider CT abdomen and pelvis with intravenous contrast. Check lipase and await for final cultures. Discussed with Dr. Velasco. Dictated By: Kaylan Galvan NP /berny/manish /Document#: [id number] MTDD
[2017-06-03] MEDS ORDERED: IOHEXOL 300MG/ML 150 ML BTL ONE (21:05)
[2017-06-03] MEDS ORDERED: SOD CHLORIDE 0.9% 100 ML ONE (21:05)
[2017-06-04] VITALS (11 sets, daily range): BP systolic 121–152; BP diastolic 75–91; PULSE 66–89; RESP 16–19
[2017-06-04] MEDS: MEROPENEM 500MG/50 ML (PMX) 50 ML IVPB SCH ×2 (00:58→06:15)
[2017-06-04] MEDS: ACETAMINOPHEN 500 MG TAB PO PRN ×4 (02:50→20:26)
[2017-06-04] MEDS: SOD CHLORIDE 0.9% 1,000 ML IV SCH ×2 (06:15→20:23)
[2017-06-04 07:10] LABS: BASOPHILS % 0.7 % (0.0-2.0); EOSINOPHILS % 0.2 % (0.0-7.0); HEMATOCRIT 40.9 % (42.0-52.0); LYMPHOCYTES # 1.5 10^3/ul (0.8-2.9); LYMPHOCYTES % 33.3 % (15.0-51.0); MEAN CORPUSCULAR HEMOGLOBIN 29.2 pg (29.0-33.0); MEAN CORPUSCULAR HGB CONC 34.2 g/dl (32.0-37.0); MEAN CORPUSCULAR VOLUME 85.4 fl (82.0-101.0); MEAN PLATELET VOLUME 10.9 fl (7.4-10.4); MONOCYTE # 0.5 10^3/ul (0.3-0.9); NEUTROPHIL # 2.4 10^3/ul (1.6-7.5); NEUTROPHILS % 54.3 % (39.0-77.0); PLATELET COUNT 149 10^3/UL (140-415); RED BLOOD COUNT 4.79 10^6/ul (4.70-6.10); RED CELL DISTRIBUTION WIDTH 12.2 % (11.5-14.5); WHITE BLOOD COUNT 4.4 10^3/ul (4.8-10.8)
[2017-06-04 07:40] LABS: CALCIUM 8.5 mg/dl (8.4-10.2); CREATININE 0.82 mg/dl (0.61-1.24); MAGNESIUM 2.2 mg/dl (1.7-2.5); POTASSIUM 4.2 mmol/L (3.5-5.1)
--- NOTE | 2017-06-04 07:41 | RADRPT ---
PROCEDURE: CT Abdomen and Pelvis with contrast. CLINICAL INDICATION: Abdomen and pelvis pain. Severe sepsis. TECHNIQUE: CT scan of the abdomen and pelvis with contrast was performed. The patient was scanned following the uncomplicated intravenous administration of 120 cc of Omnipaque-300. Coronal and sagi ttal reformatted images were obtained from the axial source images. Images were reviewed on a high-r [employer] PACS workstation. Total exam DLP is 1260.51 mGy-cm. CTDIvol is 20.23 mGy. One or more o f the following dose reduction techniques were used: Automated exposure control, adjustment of the m A and/or kV according to patient size, use of iterative reconstruction technique. COMPARISON: Noncontrast CT scan of the abdomen and pelvis dated 06/01/2017. FINDINGS: The lung bases are normal. There is no pleural effusion. The liver is normal in size and attenuation. There is no focal hepatic lesion. The gallbladder and bile ducts are normal. The spleen is normal in size. There is no focal splenic lesion. Both adrenals are normal with no enlargement or mass. The pancreas is unremarkable with no mass or evidence of pancreatitis. Both kidneys demonstrate normal contrast enhancement. There is no solid renal mass or hydronephros is. There are benign cysts in the right kidney with the largest measuring 3 cm in diameter. The abdominal aorta is not dilated. There is no retroperitoneal lymphadenopathy or mass. There is no pelvic lymphadenopathy or mass. The bladder and distal ureters are normal. The appendix is surgically absent with surgical clips noted in the right lower quadrant. There is a short segment of thickening of the wall of the terminal ileum. There may be a small amoun t of adjacent free fluid. The bowel is otherwise normal. Multiple prominent lymph nodes are present in the right lower quadrant adjacent to the terminal ileum with the largest measuring 1.2 cm. There is no free air. There is no abscess. The osseous structures are unremarkable with no fracture or lytic lesion. IMPRESSION: 1. Benign right renal cysts. 2. Status post appendectomy. 3. Short segment of thickening of the wall of the terminal ileum with small amount of adjacent free fluid in multiple adjacent mildly enlarged lymph nodes. This may indicate an inflammatory or infect ious process. Clinical correlation is advised. 4. Otherwise unremarkable study. RPTAT: QQ .Nick Cai MD, MD Date Time Electronically viewed and signed by .Nick Cai MD, MD on 06/04/2017 07:40 .R/
--- NOTE | 2017-06-04 09:39 | PN ---
Date/Time of Note Date/Time of Note DATE: 06/04/17 TIME: 09:37 Assessment/Plan VTE Prophylaxis VTE Prophylaxis Intervention: heparin Lines/Catheters IV [facility] Peripheral IV Urinary Cath still in place: No Assessment/Plan Problems: (1) Salmonella septicemia Status: Acute Comment: Laboratory is confirmed as Salmonella is in the blood. Patient is on meropenem due to penicillin allergy. This bacteria is in fact sensitive to Bactrim. Pending input from ID and will start the patient on Bactrim. (2) Transaminitis Status: Acute Comment: This is likely due to the GI tract illness but I will go ahead and check the hepatitis serologies to be thorough (3) Diarrhea Status: Acute Comment: This is due to the salmonellosis. Initiate formalized treatment Qualifiers: Diarrhea type: unspecified type Qualified Code: R19.7 - Diarrhea, unspecified type (4) Severe sepsis Status: Acute Comment: Improving with parameters of sepsis. Anticipate this will be able to be listed as resolved by tomorrow morning Subjective 24 Hr Interval Summary Free Text/Dictation Patient reports that his diarrhea has improved but is still present and watery. He denies any Reiger's. Constitutional: improved Respiratory: no complaints Cardiovascular: no complaints Gastrointestinal: no complaints (No nausea) Exam/Review of Systems Vital Signs Vitals Vital Signs Date Time Temp Pulse Resp B/P Pulse Ox O2 Delivery O2 Flow Rate FiO2 06/04/17 07:40 98.2 79 18 137/91 98 06/03/17 02:35 Room Air Intake and Output 06/03/17 06/03/17 06/04/17 15:00 23:00 07:00 Intake Total 1420 ml 600 ml Output Total 1650 ml 1800 ml Balance -230 ml -1200 ml Exam Constitutional: alert, oriented Neck: non-tender, supple Respiratory: clear to auscultation, normal air movement Cardiovascular: nl pulses, regular rate and rhythm Gastrointestinal: nl liver, spleen, non-tender, soft Results Result Diagram: 06/04/17 0643 06/04/17 0643 Results 24 hrs Laboratory Tests Test 06/03/17 14:12 06/04/17 06:43 Lipase 287 HIV (1&2) Antibody NEGATIVE White Blood Count 4.4 L Red Blood Count 4.79 Hemoglobin 14.0 Hematocrit 40.9 L Mean Corpuscular Volume 85.4 Mean Corpuscular Hemoglobin 29.2 Mean Corpuscular Hemoglobin Concent 34.2 Red Cell Distribution Width 12.2 Platelet Count 149 Mean Platelet Volume 10.9 H Neutrophils % 54.3 Lymphocytes % 33.3 Monocytes % 11.0 Eosinophils % 0.2 Basophils % 0.7 Nucleated Red Blood Cells % 0.0 Neutrophils # 2.4 Lymphocytes # 1.5 Monocytes # 0.5 Eosinophils # 0.0 Basophils # 0.0 Nucleated Red Blood Cells # 0.0 Sodium Level 134 L Potassium Level 4.2 Chloride Level 99 Carbon Dioxide Level 29 Anion Gap 10 Blood Urea Nitrogen 7 Creatinine 0.82 Glucose Level 87 Calcium Level 8.5 Magnesium Level 2.2 Medications Medications Current Medications Acetaminophen (Tylenol Tab) 500 mg Q6H PRN PO PAIN AND OR ELEVATED TEMP Last administered on 06/04/17 02:50; Admin Dose 500 MG; Start 06/03/17 at 04:30 Heparin Sodium (Porcine) (Heparin (5000 Units/0.5 ml)) 5,000 unit Q12 SC Last administered on 06/03/17 21:31; Admin Dose 5,000 UNIT; Start 06/03/17 at 09:00 Morphine Sulfate (morphine) 2 mg Q4H PRN IV PAIN Last administered on 13:40; Admin Dose 2 MG; Start 06/03/17 at 04:30 Ondansetron HCl 4 mg 4 mg Q6H PRN IV NAUSEA AND/OR VOMITING; Start 06/03/17 at 04:30 Meropenem/Sodium Chloride (Merrem 500mg/50 ml(Pmx)) 50 ml @ 200 mls/hr Q8 IVPB Last administered on 06/04/17 06:15; Admin Dose 200 MLS/HR; Start 06/03/17 at 07:00 Acetaminophen/ Hydrocodone Bitart 1 tab 1 tab Q6H PRN PO PAIN LEVEL 7-10 Last administered on 06/03/17 16:19; Admin Dose 1 TAB; Start 06/03/17 at 09:30 Sodium Chloride (NS) 1,000 ml @ 75 mls/hr [id number] IV Last administered on 06/04 06:15; Admin Dose 75 MLS/HR; Start 06/03/17 at 10:30 Nystatin (Nystatin Susp) 5 ml QID PO Last administered on 06/03/17t 21:31; Admin Dose 5 ML; Start 06/03/17 at 17:00 FIONA HERNANDEZ MD Jun 04, 2017 09:39
[2017-06-04] MEDS: NYSTATIN SUSP 5 ML CUP PO SCH ×4 (10:25→20:26)
[2017-06-04] MEDS: HEPARIN 5,000 UNIT/0.5 ML VIAL SC SCH ×2 (10:45→20:34)
[2017-06-04] MEDS: TRIMETHOPRIM/SULFAMETHOX (DS) TAB PO SCH ×2 (11:26→20:26)
--- NOTE | 2017-06-04 13:29 | CONS ---
Date/Time of Note Date/Time of Note DATE: 06/04/17 TIME: 13:09 Assessment/Plan Assessment/Plan Chief Complaint/Hosp Course ID PROGRESS NOTE CURRENT ABX: Merrem #2 + Bactrim PO #1 24H INTERVAL SUMMARY 47 yo M, afebrile, VSS * (+)Salmonella diarrheal illness == Stool (+) FECES CULTURE Preliminary Organism 1 GRAM NEGATIVE TABITHA QUANTITY 1+ * 06/01/17 BCX: BLOOD CULTURE Preliminary Organism 1 SALMONELLA SPECIES SALMONELLA M.I.C. RX --------- --- AMPICILLIN <=2 S CEFOTAXIME S CEFTAZIDIME <=1 S TRIMETHOPRIM/SULFAMETHOXAZOLE <=20 S EXAM GEN: 47 yo M HEENT: Unremarkable NECK: supple CVS: RRR CHEST: Equal chest rise bilaterally, without dyspnea on observation ABD: Soft, NT, + BS EXT: No c/c/e NEURO: Grossly intact, moves all extremities SKIN: No diaphoresis, no obvious rash ID ASSESSMENT 47 yo M admit with: 1. Sepsis on admission w/Fevers > 103.9, tachycardia HR 138, tachypnea RR 28, lactic acid 2.2-> down to 1 => Infectious diarrhea * (+)GNR septicemia w/06/01 BCx (+)Salmonella 2. Salmonella GNR infectious diarrhea w/colitis -> Bactrim + Merrem onboard => NOTE both with activity against Salmonella * CT 06/01: Mild lymphadenopathy involving the right mid and lower abdominal mesentery may represent mesenteric lymphadenitis * CT 06/03: Short segment of thickening of the wall of the terminal ileum with small amount of adjacent free fluid in multiple adjacent mildly enlarged lymph nodes. 3. Acute Transaminitis 4. s/p Acute respiratory tachypnea (-) Strep throat, (-)Influenza => RESOLVED 5. Oral candidiasis INVASIVES: PIV ABX ALLERGY: PCN CURRENT ABX: Merrem + Bactrim ID RECOMMENDATIONS 1. Ertapenem IV + Bactrim PO -> anticipate DC Ertapenem x5 days and continue Bactrim DS 1 TAB PO BID to complete 14 days * Needs to continue IV ABX total 7 days for GNR blood Cx prior to po switch Rx to Bactrim 2. DC Merrem -> Per review of literature Ertapenem is ABX of choice for Salmonella 2. CONTACT ISOLATION PRECAUTIONS: * Please follow [facility] Infection Control Department "RED BOOK" Guidelines which can be found on the [facility] home page-->select 3rd column "Patient Care"-> scroll down menu and select "Infection Control ..." -> then choose the last item when the Infection Control Page opens up called "RED BOOK" -- search under GASTROENTERITIS + BACTERIA NAME. LITERATURE REVIEW Use of Carbapenems against Clinical, Nontyphoid Salmonella Isolates: Results from In Vitro and In Vivo Animal Studies http://aac.asm.org/content/.full irasema Nuno, ankush Shearer, Clover Clark, Gris Aleman, Jazlyn Wilson, Sergo Rivers, Loraine Nuno, Radha Carrington and wan Cardenas + Author Affiliations aDepartments of Medicine bMedical Research, [facility] cDepartment of Internal Medicine, [facility] dDepartment of Medicine, [facility] e[employer], [facility] fDepartment of Health and Nutrition, [facility] of Pharmacy & Science, [facility] ABSTRACT The emergence of multidrug-resistant Salmonella isolates has created the need for new therapeutic agents. We evaluated the intracellular activity of four carbapenem compounds against clinical nontyphoid Salmonella (NTS) isolates in vitro and ex vivo. Subsequently, the efficacy of carbapenem treatment against selected Salmonella isolates in vivo was assessed using a murine peritonitis model. The MIC50 and MIC90 for doripenem, ertapenem, imipenem, and meropenem against 126 NTS isolates were found to be 0.062 and 0.062, 0.015 and 0.015, 0.5 and 1, and 0.031 and 0.031 g/ml, respectively. The intracellular killing effect of ertapenem was sustained for 24 h and was superior to that of imipenem , meropenem, and doripenem; its effect was comparable to that of ceftriaxone. Ertapenem demonstrated an excellent pharmacokinetic profile with a percent time above the BETSY of 75.5% and an area under the concentration-time curve/BETSY ratio of 20,733. When peritoneal exudate cells were examined directly ex vivo from mice with Salmonella-induced peritonitis, cells from mice treated with ertapenem and ceftriaxone had intracellular and extracellular bacterial counts reduced 102- to 104-fold and exhibited killing effects similar to each other. The survival rates of mice inoculated with 1 105 and 106 CFU of a ceftriaxone- susceptible Salmonella isolate that were subsequently treated with ertapenem or ceftriaxone were 100% and 90%, respectively. When mice were inoculated with 5 104 and 105 CFU of a ceftriaxone-resistant and ciprofloxacin-resistant Salmonella isolate, mice treated with ertapenem had a higher survival rate than mice treated with ceftriaxone (70% versus 0% and 50% versus 0%, respectively; P < 0.001). Our results suggest that ertapenem is at least as effective as ceftriaxone in treating murine Salmonella infections and show that further clinical investigations on the potential use of ertapenem in treatment of human Salmonella infections are warranted. . Problems: Consultation Date/Type/Reason Admit Date/Time Jun 03, 2017 at 01:39 Initial Consult Date Exam/Review of Systems Vital Signs Vitals Vital Signs Date Time Temp Pulse Resp B/P Pulse Ox O2 Delivery O2 Flow Rate FiO2 06/04/17 11:17 98.1 87 16 129/75 96 06/03/17 02:35 Room Air Intake and Output 06/03/17 06/03/17 06/04/17 15:00 23:00 07:00 Intake Total 1420 ml 600 ml Output Total 1650 ml 1800 ml Balance -230 ml -1200 ml Results Result Diagram: 06/04/17 0643 06/04/17 0643 Results 24 hrs Laboratory Tests Test 06/03/17 14:12 06/04/17 06:43 Lipase 287 HIV (1&2) Antibody NEGATIVE White Blood Count 4.4 L Red Blood Count 4.79 Hemoglobin 14.0 Hematocrit 40.9 L Mean Corpuscular Volume 85.4 Mean Corpuscular Hemoglobin 29.2 Mean Corpuscular Hemoglobin Concent 34.2 Red Cell Distribution Width 12.2 Platelet Count 149 Mean Platelet Volume 10.9 H Neutrophils % 54.3 Lymphocytes % 33.3 Monocytes % 11.0 Eosinophils % 0.2 Basophils % 0.7 Nucleated Red Blood Cells % 0.0 Neutrophils # 2.4 Lymphocytes # 1.5 Monocytes # 0.5 Eosinophils # 0.0 Basophils # 0.0 Nucleated Red Blood Cells # 0.0 Sodium Level 134 L Potassium Level 4.2 Chloride Level 99 Carbon Dioxide Level 29 Anion Gap 10 Blood Urea Nitrogen 7 Creatinine 0.82 Glucose Level 87 Calcium Level 8.5 Magnesium Level 2.2 Medications Medications Current Medications Acetaminophen (Tylenol Tab) 500 mg Q6H PRN PO PAIN AND OR ELEVATED TEMP Last administered on 06/04/17 11:26; Admin Dose 500 MG; Start 06/03/17 at 04:30 Heparin Sodium (Porcine) (Heparin (5000 Units/0.5 ml)) 5,000 unit Q12 SC Last administered on 06/04/17 10:45; Admin Dose 5,000 UNIT; Start 06/03/17 at 09:00 Morphine Sulfate (morphine) 2 mg Q4H PRN IV PAIN Last administered on 13:40; Admin Dose 2 MG; Start 06/03/17 at 04:30 Ondansetron HCl 4 mg 4 mg Q6H PRN IV NAUSEA AND/OR VOMITING; Start 06/03/17 at 04:30 Meropenem/Sodium Chloride (Merrem 500mg/50 ml(Pmx)) 50 ml @ 200 mls/hr Q8 IVPB Last administered on 06/04/17 06:15; Admin Dose 200 MLS/HR; Start 06/03/17 at 07:00 Acetaminophen/ Hydrocodone Bitart 1 tab 1 tab Q6H PRN PO PAIN LEVEL 7-10 Last administered on 06/03/17 16:19; Admin Dose 1 TAB; Start 06/03/17 at 09:30 Sodium Chloride (NS) 1,000 ml @ 75 mls/hr [id number] IV Last administered on 06/04 06:15; Admin Dose 75 MLS/HR; Start 06/03/17 at 10:30 Nystatin (Nystatin Susp) 5 ml QID PO Last administered on 06/04/17 10:25; Admin Dose 5 ML; Start 06/03/17 at 17:00 Trimethoprim/ Sulfamethoxazole (Bactrim (Ds)) 1 tab BID PO Last administered on 06/04/17 11:26; Admin Dose 1 TAB; Start 06/04/17 at 10:00 ASHLYN MARTINEZ NP Jun 04, 2017 13:19
[2017-06-04] MEDS: ERTAPENEM SODIUM 1 GM in SOD CHLORIDE 0.9% 100 ML IVPB SCH (20:22)
[2017-06-04] MEDS: TRIMETHOPRIM/SULFAMETHOXAZOLE 20 ML in DEXTROSE 5% 500 ML IVPB SCH (22:19)
[2017-06-05] VITALS (12 sets, daily range): BP systolic 112–140; BP diastolic 63–85; PULSE 75–86; RESP 16–18
[2017-06-05] MEDS: SOD CHLORIDE 0.9% 1,000 ML IV SCH ×2 (02:30→17:25)
[2017-06-05] MEDS: ACETAMINOPHEN 500 MG TAB PO PRN ×3 (05:36→17:55)
[2017-06-05] MEDS: TRIMETHOPRIM/SULFAMETHOXAZOLE 20 ML in DEXTROSE 5% 500 ML IVPB SCH ×3 (05:36→22:01)
[2017-06-05] MEDS: NYSTATIN SUSP 5 ML CUP PO SCH ×4 (09:32→20:26)
[2017-06-05] MEDS: HEPARIN 5,000 UNIT/0.5 ML VIAL SC SCH ×2 (10:10→20:43)
--- NOTE | 2017-06-05 12:26 | PN ---
Date/Time of Note Date/Time of Note DATE: 06/05/17 TIME: 12:24 Assessment/Plan VTE Prophylaxis VTE Prophylaxis Intervention: heparin Lines/Catheters [facility] Peripheral IV Urinary Cath still in place: No Assessment/Plan Problems: (1) Salmonella septicemia Status: Acute Comment: He is now on isolation has had her antibiotics changed around to IV Bactrim as opposed to p.o. and ertapenem. See the extremely eloquent and helpful infectious disease note. Continue on the intravenous administration of medications. exPECT full resolution. (2) Diarrhea Status: Acute Comment: Improving slowly. Due to #1 Qualifiers: Diarrhea type: unspecified type Qualified Code: R19.7 - Diarrhea, unspecified type (3) Transaminitis Status: Acute Comment: Likely on the basis of the salmonellosis and sepsis. Expect resolution. Hepatitis serologies negative Subjective 24 Hr Interval Summary Free Text/Dictation Patient reports still having loose bowel movements but not as much as yesterday still has headaches but not as much as yesterday still has fever but not as much as a few days ago Constitutional: improved Respiratory: no complaints Cardiovascular: no complaints Gastrointestinal: diarrhea Genitourinary: no complaints Exam/Review of Systems Vital Signs Vitals Vital Signs Date Time Temp Pulse Resp B/P Pulse Ox O2 Delivery O2 Flow Rate FiO2 06/05/17 11:12 98.1 84 17 120/78 97 06/03/17 02:35 Room Air Intake and Output 06/04/17 06/04/17 06/05/17 15:00 23:00 07:00 Intake Total 3045 ml 1320 ml Output Total 475 ml 2325 ml 2300 ml Balance -475 ml 720 ml -980 ml Exam Constitutional: alert, oriented Respiratory: clear to auscultation, normal air movement Cardiovascular: nl pulses, regular rate and rhythm Gastrointestinal: nl liver, spleen, non-tender, soft Results Result Diagram: 06/04/17 0643 06/04/17 0643 Medications Medications Current Medications Acetaminophen (Tylenol Tab) 500 mg Q6H PRN PO PAIN AND OR ELEVATED TEMP Last administered on 06/05/17t 05:36; Admin Dose 500 MG; Start 06/03/17 at 04:30 Heparin Sodium (Porcine) (Heparin (5000 Units/0.5 ml)) 5,000 unit Q12 SC Last administered on 06/05/17 10:10; Admin Dose 5,000 UNIT; Start 06/03/17 at 09:00 Morphine Sulfate (morphine) 2 mg Q4H PRN IV PAIN Last administered on 13:40; Admin Dose 2 MG; Start 06/03/17 at 04:30 Ondansetron HCl (Zofran Inj) 4 mg Q6H PRN IV NAUSEA AND/OR VOMITING; Start at 04:30 Acetaminophen/ Hydrocodone Bitart 1 tab 1 tab Q6H PRN PO PAIN LEVEL 7-10 Last administered on 06/03/17 16:19; Admin Dose 1 TAB; Start 06/03/17 at 09:30 Sodium Chloride (NS) 1,000 ml @ 75 mls/hr [id number] IV Last administered on 06/04 20:23; Admin Dose 75 MLS/HR; Start 06/03/17 at 10:30 Nystatin 5 ml 5 ml QID PO Last administered on 06/05/17 09:32; Admin Dose 5 ML ; Start 06/03/17 at 17:00 Ertapenem 1 gm/ Sodium Chloride 100 ml @ 200 mls/hr Q24H IVPB Last administered on 06/04/17 20:22; Admin Dose 200 MLS/HR; Start 06/04/17 at 20:00 ; Stop 06/09/17 at 19:59 Trimethoprim/ Sulfamethoxazole/ Dextrose (Bactrim/D5W) 520 ml @ 346.667 mls/hr Q8 IVPB Last administered on 06/05/17 05:36; Admin Dose 346.667 MLS/HR; Start 06/04/17 at 22:00 FIONA HERNANDEZ MD Jun 05, 2017 12:26
--- NOTE | 2017-06-05 18:35 | CONS ---
Date/Time of Note Date/Time of Note DATE: 06/05/17 TIME: 18:28 Assessment/Plan Assessment/Plan Chief Complaint/Hosp Course ID PROGRESS NOTE CURRENT ABX: ERTAPENEM #2 + Bactrim IV #2 Merrem #2-> DC'd 06/04 24H INTERVAL SUMMARY 47 yo M, afebrile, VSS * Remains on "Double IV ABX" per spiking fevers yesterday * (+)Salmonella GNR sepsis due to diarrheal illness == Stool (+) FECES CULTURE Preliminary Organism 1 GRAM NEGATIVE TABITHA QUANTITY 1+ * 06/01/17 BCX: BLOOD CULTURE Preliminary Organism 1 SALMONELLA SPECIES SALMONELLA [facility].I.[facility]. RX --------- --- AMPICILLIN <=2 S CEFOTAXIME S CEFTAZIDIME <=1 S TRIMETHOPRIM/SULFAMETHOXAZOLE <=20 S SALMONELLA M.I.[facility]. RX --------- --- AMPICILLIN <=2 S CEFOTAXIME S CEFTAZIDIME <=1 S CIPROFLOXACIN S TRIMETHOPRIM/SULFAMETHOXAZOLE <=20 S EXAM GEN: 47 yo M HEENT: Unremarkable NECK: supple CVS: RRR CHEST: Equal chest rise bilaterally, without dyspnea on observation ABD: Soft, NT, + BS EXT: No c/c/e NEURO: Grossly intact, moves all extremities SKIN: No diaphoresis, no obvious rash ID ASSESSMENT 47 yo M admit with: 1. Sepsis on admission w/Fevers > 103.9, tachycardia HR 138, tachypnea RR 28, lactic acid 2.2-> down to 1 => Infectious diarrhea * (+)GNR septicemia w/06/01 BCx (+)Salmonella * UPDATED NEW SENSITIVITIES PER MICRO SALMONELLA M.I.C. RX --------- --- AMPICILLIN <=2 S CEFOTAXIME S CEFTAZIDIME <=1 S CIPROFLOXACIN S TRIMETHOPRIM/SULFAMETHOXAZOLE <=20 S 2. Salmonella GNR infectious diarrhea w/colitis -> Bactrim + Merrem onboard => NOTE both with activity against Salmonella * Suspect salmonella peritonitis * CT 06/01: Mild lymphadenopathy involving the right mid and lower abdominal mesentery may represent mesenteric lymphadenitis * CT 06/03: Short segment of thickening of the wall of the terminal ileum with small amount of adjacent free fluid in multiple adjacent mildly enlarged lymph nodes. 3. Acute Transaminitis 4. s/p Acute respiratory tachypnea (-) Strep throat, (-)Influenza => RESOLVED 5. Oral candidiasis INVASIVES: PIV ABX ALLERGY: PCN CURRENT ABX: Merrem + Bactrim ID RECOMMENDATIONS * * NEW Micro sensitivities include CIPRO * => Anticipate PO "Switch to Cipro and/or Bactrim" when diarrhea resolves, afebrile x 48H, WBC normal. 1. Ertapenem IV + Bactrim PO -> anticipate DC Ertapenem x5 days and continue Bactrim DS 1 TAB PO BID to complete 14 days * Needs to continue IV ABX total 7 days for GNR blood Cx prior to po switch Rx to Bactrim 2. DC Merrem -> Per review of literature Ertapenem is ABX of choice for Salmonella 2. CONTACT ISOLATION PRECAUTIONS: * Please follow [facility] Infection Control Department "RED BOOK" Guidelines which can be found on the [facility] home page-->select 3rd column "Patient Care"-> scroll down menu and select "Infection Control ..." -> then choose the last item when the Infection Control Page opens up called "RED BOOK" -- search under GASTROENTERITIS + BACTERIA NAME. LITERATURE REVIEW Use of Carbapenems against Clinical, Nontyphoid Salmonella Isolates: Results from In Vitro and In Vivo Animal Studies http://aac.asm.org/content/.full irasema Nuno, ankush Shearer, Clover Clark, Gris Aleman, Jazlyn Wilson, Sergo Rivers, Loraine Nuno, Radha Carrington and wan Cardenas + Author Affiliations aDepartments of Medicine bMedical Research, [facility] cDepartment of Internal Medicine, [facility] CenterErika Karina[facility] dDepartment of Medicine, [facility], [facility], [facility], [facility] & Science, [facility] ABSTRACT The emergence of multidrug-resistant Salmonella isolates has created the need for new therapeutic agents. We evaluated the intracellular activity of four carbapenem compounds against clinical nontyphoid Salmonella (NTS) isolates in vitro and ex vivo. Subsequently, the efficacy of carbapenem treatment against selected Salmonella isolates in vivo was assessed using a murine peritonitis model. The MIC50 and MIC90 for doripenem, ertapenem, imipenem, and meropenem against 126 NTS isolates were found to be 0.062 and 0.062, 0.015 and 0.015, 0.5 and 1, and 0.031 and 0.031 g/ml, respectively. The intracellular killing effect of ertapenem was sustained for 24 h and was superior to that of imipenem , meropenem, and doripenem; its effect was comparable to that of ceftriaxone. Ertapenem demonstrated an excellent pharmacokinetic profile with a percent time above the BETSY of 75.5% and an area under the concentration-time curve/BETSY ratio of 20,733. When peritoneal exudate cells were examined directly ex vivo from mice with Salmonella-induced peritonitis, cells from mice treated with ertapenem and ceftriaxone had intracellular and extracellular bacterial counts reduced 102- to 104-fold and exhibited killing effects similar to each other. The survival rates of mice inoculated with 1 105 and 106 CFU of a ceftriaxone- susceptible Salmonella isolate that were subsequently treated with ertapenem or ceftriaxone were 100% and 90%, respectively. When mice were inoculated with 5 104 and 105 CFU of a ceftriaxone-resistant and ciprofloxacin-resistant Salmonella isolate, mice treated with ertapenem had a higher survival rate than mice treated with ceftriaxone (70% versus 0% and 50% versus 0%, respectively; P < 0.001). Our results suggest that ertapenem is at least as effective as ceftriaxone in treating murine Salmonella infections and show that further clinical investigations on the potential use of ertapenem in treatment of human Salmonella infections are warranted. . Problems: Consultation Date/Type/Reason Admit Date/Time Jun 03, 2017 at 01:39 Exam/Review of Systems Vital Signs Vitals Vital Signs Date Time Temp Pulse Resp B/P Pulse Ox O2 Delivery O2 Flow Rate FiO2 06/05/17 16:48 77 06/05/17 15:16 97.9 17 132/79 96 06/03/17 02:35 Room Air Intake and Output 06/04/17 06/04/17 06/05/17 15:00 23:00 07:00 Intake Total 3045 ml 1320 ml Output Total 475 ml 2325 ml 2300 ml Balance -475 ml 720 ml -980 ml Results Result Diagram: 06/04/17 0643 06/04/17 0643 Medications Medications Current Medications Acetaminophen (Tylenol Tab) 500 mg Q6H PRN PO PAIN AND OR ELEVATED TEMP Last administered on 06/05/17 17:55; Admin Dose 500 MG; Start 06/03/17 at 04:30 Heparin Sodium (Porcine) (Heparin (5000 Units/0.5 ml)) 5,000 unit Q12 SC Last administered on 06/05/17 10:10; Admin Dose 5,000 UNIT; Start 06/03/17 at 09:00 Morphine Sulfate (morphine) 2 mg Q4H PRN IV PAIN Last administered on 13:40; Admin Dose 2 MG; Start 06/03/17 at 04:30 Ondansetron HCl (Zofran Inj) 4 mg Q6H PRN IV NAUSEA AND/OR VOMITING Last administered on 06/05/17 17:56; Admin Dose 4 MG; Start 06/03/17 at 04:30 Acetaminophen/ Hydrocodone Bitart 1 tab 1 tab Q6H PRN PO PAIN LEVEL 7-10 Last administered on 06/03/17 16:19; Admin Dose 1 TAB; Start 06/03/17 at 09:30 Sodium Chloride (NS) 1,000 ml @ 75 mls/hr [id number] IV Last administered on 06/05 17:25; Admin Dose 75 MLS/HR; Start 06/03/17 at 10:30 Nystatin 5 ml 5 ml QID PO Last administered on 06/05/17 17:25; Admin Dose 5 ML ; Start 06/03/17 at 17:00 Ertapenem 1 gm/ Sodium Chloride 100 ml @ 200 mls/hr Q24H IVPB Last administered on 06/04/17 20:22; Admin Dose 200 MLS/HR; Start 06/04/17 at 20:00 ; Stop 06/09/17 at 19:59 Trimethoprim/ Sulfamethoxazole/ Dextrose (Bactrim/D5W) 520 ml @ 346.667 mls/hr Q8 IVPB Last administered on 06/05/17 14:43; Admin Dose 346.667 MLS/HR; Start 06/04/17 at 22:00 ASHLYN MARTINEZ NP Jun 05, 2017 18:35
[2017-06-05] MEDS: ERTAPENEM SODIUM 1 GM in SOD CHLORIDE 0.9% 100 ML IVPB SCH (20:25)
[2017-06-06] VITALS (10 sets, daily range): BP systolic 123–133; BP diastolic 72–85; PULSE 70–77; RESP 18–19
[2017-06-06] MEDS: HYDROCODONE/APAP (5/325) TAB PO PRN ×3 (03:27→16:40)
[2017-06-06] MEDS: SOD CHLORIDE 0.9% 1,000 ML IV SCH ×3 (05:10→17:52)
[2017-06-06] MEDS: TRIMETHOPRIM/SULFAMETHOXAZOLE 20 ML in DEXTROSE 5% 500 ML IVPB SCH ×2 (06:21→13:07)
[2017-06-06] MEDS: NYSTATIN SUSP 5 ML CUP PO SCH ×4 (08:32→20:38)
[2017-06-06] MEDS: HEPARIN 5,000 UNIT/0.5 ML VIAL SC SCH ×2 (08:40→20:39)
--- NOTE | 2017-06-06 09:57 | PN ---
Date/Time of Note Date/Time of Note DATE: 06/06/17 TIME: 09:56 Assessment/Plan VTE Prophylaxis VTE Prophylaxis Intervention: ambulation Lines/Catheters IV [facility]ter Type (from [facility]): Peripheral IV Urinary Cath still in place: No Assessment/Plan Chief Complaint/Hosp Course 1. Sepsis secondary to Salmonella bacteremia. On antimicrobials as per infectious diseases. Blood cultures 2 from his previous visit to the ER on positive for Salmonella species. 2. Transaminitis. Likely secondary to underlying sepsis. Hepatitis serology negative. 3. Diarrhea. Improving. 4. Fluids, electrolytes, and nutrition. Regular diet. 5. DVT prophylaxis. Ambulation. 6. Plan. Continue antimicrobials as per infectious diseases. Await clearance from consultants before discharge. May be moved out from telemetry floor. Case discussed with Dr. Godoy. Problems: Subjective 24 Hr Interval Summary Free Text/Dictation Remains afebrile. Diarrhea improving. Exam/Review of Systems Vital Signs Vitals Vital Signs Date Time Temp Pulse Resp B/P Pulse Ox O2 Delivery O2 Flow Rate FiO2 06/06/17 08:18 77 06/06/17 07:30 98.2 19 123/79 99 06/05/17 20:00 Room Air Intake and Output 06/05/17 06/05/17 06/06/17 15:00 23:00 07:00 Intake Total 970 ml 1912 ml 1870 ml Output Total 2900 ml 1500 ml Balance 970 ml -988 ml 370 ml Exam General: Adequately build 47 year-old male lying in bed in no apparent distress. HEENT: Normocephalic, atraumatic. Eyes: Anicteric sclerae, conjunctivae clear. ENT: Nasal septum midline, oral mucosa moist. Neck supple, no JVD noticed. Respiratory: Bilaterally clear breath sounds. No use of accessory muscles of respiration. No adventitious breath sounds. Cardiovascular: S1, S2 heard. No murmurs or gallops. Abdomen: Soft, nontender, and nondistended. Bowel sounds positive in all 4 quadrants. Genitourinary: Deferred. Extremities: No cyanosis, no clubbing, no edema. Peripheral pulses palpable. Neurologic: Cranial nerves II through XII grossly intact. The patient is awake, alert, and oriented. Skin: Normal skin turgor. No skin rashes. Results Result Diagram: 06/04/1743 9/16/17 0643 Medications Medications Current Medications Acetaminophen (Tylenol Tab) 500 mg Q6H PRN PO PAIN AND OR ELEVATED TEMP Last administered on 06/05/17 17:55; Admin Dose 500 MG; Start 06/03/17 at 04:30 Heparin Sodium (Porcine) (Heparin (5000 Units/0.5 ml)) 5,000 unit Q12 SC Last administered on 06/06/17 08:40; Admin Dose 5,000 UNIT; Start 06/03/17 at 09:00 Morphine Sulfate (morphine) 2 mg Q4H PRN IV PAIN Last administered on 13:40; Admin Dose 2 MG; Start 06/03/17 at 04:30 Ondansetron HCl (Zofran Inj) 4 mg Q6H PRN IV NAUSEA AND/OR VOMITING Last administered on 06/05/17 17:56; Admin Dose 4 MG; Start 06/03/17 at 04:30 Acetaminophen/ Hydrocodone Bitart 1 tab 1 tab Q6H PRN PO PAIN LEVEL 7-10 Last administered on 06/06/17 03:27; Admin Dose 1 TAB; Start 06/03/17 at 09:30 Sodium Chloride (NS) 1,000 ml @ 75 mls/hr [id number] IV Last administered on 06/06 06:26; Admin Dose 75 MLS/HR; Start 06/03/17 at 10:30 Nystatin 5 ml 5 ml QID PO Last administered on 06/06/17 08:32; Admin Dose 5 ML ; Start 06/03/17 at 17:00 Ertapenem 1 gm/ Sodium Chloride 100 ml @ 200 mls/hr Q24H IVPB Last administered on 06/05/17 20:25; Admin Dose 200 MLS/HR; Start 06/04/17 at 20:00 ; Stop 06/09/17 at 19:59 Trimethoprim/ Sulfamethoxazole/ Dextrose (Bactrim/D5W) 520 ml @ 346.667 mls/hr Q8 IVPB Last administered on 06/06/17 06:21; Admin Dose 346.667 MLS/HR; Start 06/04/17 at 22:00 DAX SEGUNDO NP Jun 06, 2017 09:56
--- NOTE | 2017-06-06 20:01 | PN ---
DATE: 06/06/2017 SUBJECTIVE DATA: No acute changes. The patient is awake, looks comfortable. He is afebrile. MICROBIOLOGY: Blood culture on June 02 negative. Stool for C diff negative. ANTIMICROBIALS: Patient is on IV Bactrim and Invanz. PHYSICAL EXAMINATION: GENERAL: This is a well-developed, well-nourished, middle-aged man, who is in no distress. HEENT: Head atraumatic, normocephalic. Sclerae anicteric. Buccal mucosa pink. NECK: Supple. CHEST: Chest rise symmetrical. Breath sounds clear. HEART: S1, S2. ABDOMEN: Soft, bowel sounds present. ASSESSMENT: 1. Resolving sepsis. 2. Salmonella species bacteremia. 3. Acute transaminitis, negative hepatitis serology. 4. Oral thrush, on oral nystatin. PLAN: 1. The patient remains stable, overall improving. 2. Repeat blood cultures negative. 3. Anticipate discharge on oral ciprofloxacin. Dictated By: Kaylan Galvan NP /berny/manish /Document#: [id number] MATILDE
[2017-06-06] MEDS: ERTAPENEM SODIUM 1 GM in SOD CHLORIDE 0.9% 100 ML IVPB SCH (20:38)
[2017-06-07 02:20] VITALS: BP 118/73; RESP 16
[2017-06-07] MEDS: SOD CHLORIDE 0.9% 1,000 ML IV SCH ×2 (03:02→15:34)
[2017-06-07] MEDS: TRIMETHOPRIM/SULFAMETHOXAZOLE 20 ML in DEXTROSE 5% 500 ML IVPB SCH ×4 (05:42→13:40)
[2017-06-07 06:21] LABS: BASOPHILS % 0.6 % (0.0-2.0); EOSINOPHILS # 0.1 10^3/ul (0.0-0.5); EOSINOPHILS % 1.2 % (0.0-7.0); HEMATOCRIT 43.5 % (42.0-52.0); LYMPHOCYTES # 2.3 10^3/ul (0.8-2.9); LYMPHOCYTES % 48.1 % (15.0-51.0); MEAN CORPUSCULAR HEMOGLOBIN 29.9 pg (29.0-33.0); MEAN CORPUSCULAR HGB CONC 34.5 g/dl (32.0-37.0); MEAN CORPUSCULAR VOLUME 86.7 fl (82.0-101.0); MEAN PLATELET VOLUME 10.6 fl (7.4-10.4); MONOCYTE # 0.7 10^3/ul (0.3-0.9); MONOCYTES % 14.6 % (0.0-11.0); NEUTROPHIL # 1.7 10^3/ul (1.6-7.5); NEUTROPHILS % 34.1 % (39.0-77.0); PLATELET COUNT 248 10^3/UL (140-415); RED BLOOD COUNT 5.02 10^6/ul (4.70-6.10); RED CELL DISTRIBUTION WIDTH 12.6 % (11.5-14.5); WHITE BLOOD COUNT 4.9 10^3/ul (4.8-10.8)
[2017-06-07 06:59] LABS: ALBUMIN 3.5 g/dl (3.3-4.9); ALBUMIN/GLOBULIN RATIO 0.85; BILIRUBIN,INDIRECT 0.2 mg/dl (0-1.1); BILIRUBIN,TOTAL 0.2 mg/dl (0.2-1.3); CALCIUM 8.9 mg/dl (8.4-10.2); CREATININE 0.98 mg/dl (0.61-1.24); TOTAL PROTEIN 7.6 g/dl (6.1-8.1)
[2017-06-07 07:00] LABS: MAGNESIUM 2.3 mg/dl (1.7-2.5); PHOSPHORUS 3.5 mg/dl (2.5-4.9)
[2017-06-07 07:39] VITALS: BP 123/75; RESP 18
--- NOTE | 2017-06-07 07:56 | PN ---
Date/Time of Note Date/Time of Note DATE: 06/07/17 TIME: 07:56 Assessment/Plan VTE Prophylaxis VTE Prophylaxis Intervention: ambulation Lines/Catheters [facility] (from [facility]): Peripheral IV Urinary Cath still in place: No Assessment/Plan Chief Complaint/Hosp Course 1. Sepsis secondary to Salmonella bacteremia. On antimicrobials as per infectious diseases. Blood cultures 2 from his previous visit to the ER on positive for Salmonella species. 2. Transaminitis. Likely secondary to underlying sepsis. Hepatitis serology negative. 3. Diarrhea. Improving. 4. Fluids, electrolytes, and nutrition. Regular diet. 5. DVT prophylaxis. Ambulation. 6. Plan. Continue antimicrobials as per infectious diseases. Await clearance from consultants before discharge. Case discussed with Dr. Godoy. Problems: Subjective 24 Hr Interval Summary Free Text/Dictation The patient remains afebrile. Exam/Review of Systems Vital Signs Vitals Vital Signs Date Time Temp Pulse Resp B/P Pulse Ox O2 Delivery O2 Flow Rate FiO2 06/07/17 07:39 98.3 84 18 123/75 98 06/05/17 20:00 Room Air Intake and Output 06/06/17 06/06/17 06/07/17 15:00 23:00 07:00 Intake Total 1200 ml 1620 ml 2140 ml Output Total 2400 ml Balance -1200 ml 1620 ml 2140 ml Exam General: Adequately build 47 year-old male lying in bed in no apparent distress. HEENT: Normocephalic, atraumatic. Eyes: Anicteric sclerae, conjunctivae clear. ENT: Nasal septum midline, oral mucosa moist. Neck supple, no JVD noticed. Respiratory: Bilaterally clear breath sounds. No use of accessory muscles of respiration. No adventitious breath sounds. Cardiovascular: S1, S2 heard. No murmurs or gallops. Abdomen: Soft, nontender, and nondistended. Bowel sounds positive in all 4 quadrants. Genitourinary: Deferred. Extremities: No cyanosis, no clubbing, no edema. Peripheral pulses palpable. Neurologic: Cranial nerves II through XII grossly intact. The patient is awake, alert, and oriented. Skin: Normal skin turgor. No skin rashes. Results Result Diagram: 06/07/17 0538 06/07/17 0538 Results 24 hrs Laboratory Tests Test 06/07/17 05:38 White Blood Count 4.9 Red Blood Count 5.02 Hemoglobin 15.0 Hematocrit 43.5 Mean Corpuscular Volume 86.7 Mean Corpuscular Hemoglobin 29.9 Mean Corpuscular Hemoglobin Concent 34.5 Red Cell Distribution Width 12.6 Platelet Count 248 # Mean Platelet Volume 10.6 H Neutrophils % 34.1 L Lymphocytes % 48.1 Monocytes % 14.6 H Eosinophils % 1.2 Basophils % 0.6 Nucleated Red Blood Cells % 0.0 Neutrophils # 1.7 Lymphocytes # 2.3 Monocytes # 0.7 Eosinophils # 0.1 Basophils # 0.0 Nucleated Red Blood Cells # 0.0 Sodium Level 133 L Potassium Level 5.0 Chloride Level 101 Carbon Dioxide Level 27 Anion Gap 10 Blood Urea Nitrogen 5 L Creatinine 0.98 Glucose Level 92 Calcium Level 8.9 Phosphorus Level 3.5 Magnesium Level 2.3 Total Bilirubin 0.2 Direct Bilirubin 0.00 Indirect Bilirubin 0.2 Aspartate Amino Transf (AST/SGOT) 249 H Alanine Aminotransferase (ALT/SGPT) 331 H Alkaline Phosphatase 267 H Total Protein 7.6 Albumin 3.5 Globulin 4.10 H Albumin/Globulin Ratio 0.85 Medications Medications Current Medications Acetaminophen (Tylenol Tab) 500 mg Q6H PRN PO PAIN AND OR ELEVATED TEMP Last administered on 06/05/17 17:55; Admin Dose 500 MG; Start 06/03/17 at 04:30 Heparin Sodium (Porcine) (Heparin (5000 Units/0.5 ml)) 5,000 unit Q12 SC Last administered on 06/06/17 20:39; Admin Dose 5,000 UNIT; Start 06/03/17 at 09:00 Morphine Sulfate (morphine) 2 mg Q4H PRN IV PAIN Last administered on 13:40; Admin Dose 2 MG; Start 06/03/17 at 04:30 Ondansetron HCl (Zofran Inj) 4 mg Q6H PRN IV NAUSEA AND/OR VOMITING Last administered on 06/05/17 17:56; Admin Dose 4 MG; Start 06/03/17 at 04:30 Acetaminophen/ Hydrocodone Bitart 1 tab 1 tab Q6H PRN PO PAIN LEVEL 7-10 Last administered on 06/06/17 16:40; Admin Dose 1 TAB; Start 06/03/17 at 09:30 Sodium Chloride (NS) 1,000 ml @ 75 mls/hr [id number] IV Last administered on 06/07 03:02; Admin Dose 75 MLS/HR; Start 06/03/17 at 10:30 Nystatin 5 ml 5 ml QID PO Last administered on 06/06/17 20:38; Admin Dose 5 ML ; Start 06/03/17 at 17:00 Ertapenem 1 gm/ Sodium Chloride 100 ml @ 200 mls/hr Q24H IVPB Last administered on 06/06/17 20:38; Admin Dose 200 MLS/HR; Start 06/04/17 at 20:00 ; Stop 06/09/17 at 19:59 Trimethoprim/ Sulfamethoxazole/ Dextrose (Bactrim/D5W) 520 ml @ 346.667 mls/hr Q8 IVPB Last administered on 06/07/17 05:42; Admin Dose 346.667 MLS/HR; Start 06/04/17 at 22:00 DAX SEGUNDO NP Jun 07, 2017 07:56
[2017-06-07] MEDS: NYSTATIN SUSP 5 ML CUP PO SCH ×4 (09:35→20:55)
[2017-06-07] MEDS: HEPARIN 5,000 UNIT/0.5 ML VIAL SC SCH ×2 (09:37→21:02)
[2017-06-07 13:07] VITALS: BP 126/81; RESP 18
--- NOTE | 2017-06-07 16:48 | PN ---
DATE: 06/07/2017 SUBJECTIVE DATA: No acute changes overnight. Patient is alert, feels good, looks comfortable. Denies pain. Still has watery stools. No fevers. LABORATORY AND DIAGNOSTIC DATA: WBC 4.9, no shift, no bands. BUN 5, creatinine 0.98. PHYSICAL EXAMINATION: GENERAL: Well developed, middle-aged, man, in no distress. HEENT: Head atraumatic, normocephalic. Sclerae anicteric. Buccal mucosa dry. NECK: Supple. CHEST: Rise symmetrical. Breath sounds clear. HEART: S1, S2. ABDOMEN: Soft, bowel sounds present. EXTREMITIES: No cyanosis. ASSESSMENT: 1. Resolving sepsis. 2. Salmonella species bacteremia, possible enteritis. 3. Oral rash, on nystatin. 4. Transaminitis, with negative hepatitis serology. PLAN: Patient remains stable. Repeat blood cultures negative. We are going to discontinue current antibiotics and start patient on ciprofloxacin. Consider Gastroenterology evaluation, given persistent transaminitis. Dictated By: Kaylan Galvan NP /berny/joel /Document#: [id number]
[2017-06-07 19:40] VITALS: BP 125/86; RESP 20
[2017-06-07] MEDS: CIPROFLOXACIN 400MG/D5W 200 ML IVPB SCH (20:55)
[2017-06-08 01:45] VITALS: BP 120/72; RESP 20
[2017-06-08] MEDS: SOD CHLORIDE 0.9% 1,000 ML IV SCH ×2 (04:33→18:18)
[2017-06-08 06:22] LABS: BASOPHILS % 0.8 % (0.0-2.0); EOSINOPHILS # 0.1 10^3/ul (0.0-0.5); EOSINOPHILS % 1.7 % (0.0-7.0); HEMATOCRIT 43.7 % (42.0-52.0); LYMPHOCYTES # 2.5 10^3/ul (0.8-2.9); LYMPHOCYTES % 51.1 % (15.0-51.0); MEAN CORPUSCULAR HEMOGLOBIN 30.1 pg (29.0-33.0); MEAN CORPUSCULAR HGB CONC 34.3 g/dl (32.0-37.0); MEAN CORPUSCULAR VOLUME 87.8 fl (82.0-101.0); MEAN PLATELET VOLUME 10.8 fl (7.4-10.4); MONOCYTE # 0.7 10^3/ul (0.3-0.9); MONOCYTES % 14.4 % (0.0-11.0); NEUTROPHIL # 1.5 10^3/ul (1.6-7.5); NEUTROPHILS % 30.5 % (39.0-77.0); PLATELET COUNT 276 10^3/UL (140-415); RED BLOOD COUNT 4.98 10^6/ul (4.70-6.10); RED CELL DISTRIBUTION WIDTH 12.8 % (11.5-14.5); WHITE BLOOD COUNT 4.8 10^3/ul (4.8-10.8)
[2017-06-08 06:47] LABS: ALBUMIN 3.7 g/dl (3.3-4.9); ALBUMIN/GLOBULIN RATIO 0.9; BILIRUBIN,INDIRECT 0.3 mg/dl (0-1.1); BILIRUBIN,TOTAL 0.3 mg/dl (0.2-1.3); CREATININE 0.9 mg/dl (0.61-1.24); TOTAL PROTEIN 7.8 g/dl (6.1-8.1)
[2017-06-08 06:52] LABS: MAGNESIUM 2.2 mg/dl (1.7-2.5); PHOSPHORUS 3.4 mg/dl (2.5-4.9)
[2017-06-08 07:34] VITALS: BP 118/82; RESP 17
[2017-06-08] MEDS: CIPROFLOXACIN 400MG/D5W 200 ML IVPB SCH ×2 (09:52→20:53)
[2017-06-08] MEDS: NYSTATIN SUSP 5 ML CUP PO SCH ×4 (09:53→20:53)
[2017-06-08] MEDS: HEPARIN 5,000 UNIT/0.5 ML VIAL SC SCH ×2 (09:59→20:55)
[2017-06-08] MEDS: FLUCONAZOLE 100 MG TAB PO SCH (11:38)
--- NOTE | 2017-06-08 11:43 | PN ---
Date/Time of Note Date/Time of Note DATE: 06/08/17 TIME: 11:42 Assessment/Plan VTE Prophylaxis VTE Prophylaxis Intervention: ambulation Lines/Catheters IV Catheter Type (from [facility]): Peripheral IV Urinary Cath still in place: No Assessment/Plan Chief Complaint/Hosp Course 1. S/P sepsis secondary to Salmonella bacteremia. On antimicrobials as per infectious diseases. Blood cultures 2 from his previous visit to the ER on positive for Salmonella species. 2. Transaminitis. Likely secondary to underlying sepsis. Hepatitis serology negative. 3. Diarrhea. Improving. 4. Fluids, electrolytes, and nutrition. Regular diet. 5. DVT prophylaxis. Ambulation. 6. Plan. Continue antimicrobials as per infectious diseases. Will order a RUQ ultrasound because of persistent transaminitis. Await clearance from consultants before discharge. Case discussed with Dr. Godoy. Problems: Subjective 24 Hr Interval Summary Free Text/Dictation Denies any abdominal pain. Remains afebrile. Exam/Review of Systems Vital Signs Vitals Vital Signs Date Time Temp Pulse Resp B/P Pulse Ox O2 Delivery O2 Flow Rate FiO2 06/08/17 07:34 98.0 71 17 118/82 98 06/05/17 20:00 Room Air Intake and Output 06/07/17 06/07/17 06/08/17 15:00 23:00 07:00 Intake Total 500 ml 2520 ml 1530 ml Balance 500 ml 2520 ml 1530 ml Exam General: Adequately build 47 year-old male lying in bed in no apparent distress. HEENT: Normocephalic, atraumatic. Eyes: Anicteric sclerae, conjunctivae clear. ENT: Nasal septum midline, oral mucosa moist. Neck supple, no JVD noticed. Respiratory: Bilaterally clear breath sounds. No use of accessory muscles of respiration. No adventitious breath sounds. Cardiovascular: S1, S2 heard. No murmurs or gallops. Abdomen: Soft, nontender, and nondistended. Bowel sounds positive in all 4 quadrants. Genitourinary: Deferred. Extremities: No cyanosis, no clubbing, no edema. Peripheral pulses palpable. Neurologic: Cranial nerves II through XII grossly intact. The patient is awake, alert, and oriented. Skin: Normal skin turgor. No skin rashes. Results Result Diagram: 06/08/17 0537 06/08/17 0537 Results 24 hrs Laboratory Tests Test 06/08/17 05:37 White Blood Count 4.8 Red Blood Count 4.98 Hemoglobin 15.0 Hematocrit 43.7 Mean Corpuscular Volume 87.8 Mean Corpuscular Hemoglobin 30.1 Mean Corpuscular Hemoglobin Concent 34.3 Red Cell Distribution Width 12.8 Platelet Count 276 Mean Platelet Volume 10.8 H Neutrophils % 30.5 L Lymphocytes % 51.1 H Monocytes % 14.4 H Eosinophils % 1.7 Basophils % 0.8 Nucleated Red Blood Cells % 0.0 Neutrophils # 1.5 L Lymphocytes # 2.5 Monocytes # 0.7 Eosinophils # 0.1 Basophils # 0.0 Nucleated Red Blood Cells # 0.0 Sodium Level 134 L Potassium Level 5.0 Chloride Level 101 Carbon Dioxide Level 27 Anion Gap 11 Blood Urea Nitrogen 7 Creatinine 0.90 Glucose Level 94 Calcium Level 9.0 Phosphorus Level 3.4 Magnesium Level 2.2 Total Bilirubin 0.3 Direct Bilirubin 0.00 Indirect Bilirubin 0.3 Aspartate Amino Transf (AST/SGOT) 169 H Alanine Aminotransferase (ALT/SGPT) 295 H Alkaline Phosphatase 282 H Total Protein 7.8 Albumin 3.7 Globulin 4.10 H Albumin/Globulin Ratio 0.90 Medications Medications Current Medications Acetaminophen (Tylenol Tab) 500 mg Q6H PRN PO PAIN AND OR ELEVATED TEMP Last administered on 06/05/17 17:55; Admin Dose 500 MG; Start 06/03/17 at 04:30 Heparin Sodium (Porcine) (Heparin (5000 Units/0.5 ml)) 5,000 unit Q12 SC Last administered on 06/08/17 09:59; Admin Dose 5,000 UNIT; Start 06/03/17 at 09:00 Morphine Sulfate (morphine) 2 mg Q4H PRN IV PAIN Last administered on 13:40; Admin Dose 2 MG; Start 06/03/17 at 04:30 Ondansetron HCl (Zofran Inj) 4 mg Q6H PRN IV NAUSEA AND/OR VOMITING Last administered on 06/05/17 17:56; Admin Dose 4 MG; Start 06/03/17 at 04:30 Acetaminophen/ Hydrocodone Bitart 1 tab 1 tab Q6H PRN PO PAIN LEVEL 7-10 Last administered on 06/06/17 16:40; Admin Dose 1 TAB; Start 06/03/17 at 09:30 Sodium Chloride (NS) 1,000 ml @ 75 mls/hr [id number] IV Last administered on 06/08 04:33; Admin Dose 75 MLS/HR; Start 06/03/17 at 10:30 Nystatin 5 ml 5 ml QID PO Last administered on 06/08/17 09:53; Admin Dose 5 ML ; Start 06/03/17 at 17:00 Ciprofloxacin/ Dextrose (Cipro Ivpb) 200 ml @ 200 mls/hr Q12 IVPB Last administered on 06/08/17 09:52; Admin Dose 200 MLS/HR; Start 06/07/17 at 21:00 Fluconazole (Diflucan) 100 mg DAILY PO Last administered on 06/08/17 11:38; Admin Dose 100 MG; Start 06/08/17 at 10:30 DAX SEGUNDO [employer] Jun 08, 2017 11:43
--- NOTE | 2017-06-08 12:55 | CONS ---
Date/Time of Note Date/Time of Note DATE: 06/08/17 TIME: 12:53 Assessment/Plan Assessment/Plan Chief Complaint/Hosp Course SUBJECTIVE DATA: Alert, feels good no vomiting no diarrhea Temperature 98 pulse 70 respirations 17 blood pressure 118/82 saturation 98% on room air WBC 4.8 platelets 276 BUN 7 creatinine 0.90 Antibiotics: Cipro, Diflucan PHYSICAL EXAMINATION: GENERAL: Well developed, middle-aged, man, in no distress. HEENT: Head atraumatic, normocephalic. Sclerae anicteric. Buccal mucosa dry. NECK: Supple. CHEST: Rise symmetrical. Breath sounds clear. HEART: S1, S2. ABDOMEN: Soft, bowel sounds present. EXTREMITIES: No cyanosis. ASSESSMENT: 1. Resolving sepsis. 2. Salmonella species bacteremia, possible enteritis. 3. Oral trash, on nystatin. 4. Transaminitis, with negative hepatitis serology, tracing down. PLAN: Patient remains stable. Repeat blood cultures negative. Anticipate discharge on oral ciprofloxacin for 7 more days Problems: Consultation Date/Type/Reason Admit Date/Time Jun 03, 2017 at 01:39 Initial Consult Date Type of Consultation: ID Exam/Review of Systems Vital Signs Vitals Vital Signs Date Time Temp Pulse Resp B/P Pulse Ox O2 Delivery O2 Flow Rate FiO2 06/08/17 07:34 98.0 71 17 118/82 98 06/05/17 20:00 Room Air Intake and Output 06/07/17 06/07/17 06/08/17 15:00 23:00 07:00 Intake Total 500 ml 2520 ml 1530 ml Balance 500 ml 2520 ml 1530 ml Results Result Diagram: 06/08/17 0537 06/08/17 0537 Results 24 hrs Laboratory Tests Test 06/08/17 05:37 White Blood Count 4.8 Red Blood Count 4.98 Hemoglobin 15.0 Hematocrit 43.7 Mean Corpuscular Volume 87.8 Mean Corpuscular Hemoglobin 30.1 Mean Corpuscular Hemoglobin Concent 34.3 Red Cell Distribution Width 12.8 Platelet Count 276 Mean Platelet Volume 10.8 H Neutrophils % 30.5 L Lymphocytes % 51.1 H Monocytes % 14.4 H Eosinophils % 1.7 Basophils % 0.8 Nucleated Red Blood Cells % 0.0 Neutrophils # 1.5 L Lymphocytes # 2.5 Monocytes # 0.7 Eosinophils # 0.1 Basophils # 0.0 Nucleated Red Blood Cells # 0.0 Sodium Level 134 L Potassium Level 5.0 Chloride Level 101 Carbon Dioxide Level 27 Anion Gap 11 Blood Urea Nitrogen 7 Creatinine 0.90 Glucose Level 94 Calcium Level 9.0 Phosphorus Level 3.4 Magnesium Level 2.2 Total Bilirubin 0.3 Direct Bilirubin 0.00 Indirect Bilirubin 0.3 Aspartate Amino Transf (AST/SGOT) 169 H Alanine Aminotransferase (ALT/SGPT) 295 H Alkaline Phosphatase 282 H Total Protein 7.8 Albumin 3.7 Globulin 4.10 H Albumin/Globulin Ratio 0.90 Medications Medications Current Medications Acetaminophen (Tylenol Tab) 500 mg Q6H PRN PO PAIN AND OR ELEVATED TEMP Last administered on 06/05/17 17:55; Admin Dose 500 MG; Start 06/03/17 at 04:30 Heparin Sodium (Porcine) (Heparin (5000 Units/0.5 ml)) 5,000 unit Q12 SC Last administered on 06/08/17 09:59; Admin Dose 5,000 UNIT; Start 06/03/17 at 09:00 Morphine Sulfate (morphine) 2 mg Q4H PRN IV PAIN Last administered on 13:40; Admin Dose 2 MG; Start 06/03/17 at 04:30 Ondansetron HCl (Zofran Inj) 4 mg Q6H PRN IV NAUSEA AND/OR VOMITING Last administered on 06/05/17 17:56; Admin Dose 4 MG; Start 06/03/17 at 04:30 Acetaminophen/ Hydrocodone Bitart 1 tab 1 tab Q6H PRN PO PAIN LEVEL 7-10 Last administered on 06/06/17 16:40; Admin Dose 1 TAB; Start 06/03/17 at 09:30 Sodium Chloride (NS) 1,000 ml @ 75 mls/hr [id number] IV Last administered on 06/08 04:33; Admin Dose 75 MLS/HR; Start 06/03/17 at 10:30 Nystatin 5 ml 5 ml QID PO Last administered on 06/08/17 09:53; Admin Dose 5 ML ; Start 06/03/17 at 17:00 Ciprofloxacin/ Dextrose (Cipro Ivpb) 200 ml @ 200 mls/hr Q12 IVPB Last administered on 06/08/17 09:52; Admin Dose 200 MLS/HR; Start 06/07/17 at 21:00 Fluconazole (Diflucan) 100 mg DAILY PO Last administered on 06/08/17t 11:38; Admin Dose 100 MG; Start 06/08/17 at 10:30 ARIANNA RESTREPO NP Jun 08, 2017 12:55
[2017-06-08 13:48] VITALS: BP 124/80; RESP 20
[2017-06-08 13:49] VITALS: BP 124/80; RESP 20
[2017-06-08 20:02] VITALS: BP 123/74; RESP 20
[2017-06-09 01:47] VITALS: BP 114/80; RESP 20
[2017-06-09 05:45] LABS: BASOPHILS % 0.7 % (0.0-2.0); EOSINOPHILS # 0.1 10^3/ul (0.0-0.5); HEMATOCRIT 42.3 % (42.0-52.0); HEMOGLOBIN 14.8 g/dl (14.0-18.0); LYMPHOCYTES # 2.2 10^3/ul (0.8-2.9); LYMPHOCYTES % 48.9 % (15.0-51.0); MEAN CORPUSCULAR HEMOGLOBIN 29.9 pg (29.0-33.0); MEAN CORPUSCULAR VOLUME 85.5 fl (82.0-101.0); MEAN PLATELET VOLUME 10.5 fl (7.4-10.4); MONOCYTE # 0.6 10^3/ul (0.3-0.9); MONOCYTES % 12.7 % (0.0-11.0); NEUTROPHIL # 1.6 10^3/ul (1.6-7.5); NEUTROPHILS % 33.9 % (39.0-77.0); PLATELET COUNT 300 10^3/UL (140-415); RED BLOOD COUNT 4.95 10^6/ul (4.70-6.10); RED CELL DISTRIBUTION WIDTH 12.7 % (11.5-14.5); WHITE BLOOD COUNT 4.6 10^3/ul (4.8-10.8)
[2017-06-09 06:38] LABS: PHOSPHORUS 3.7 mg/dl (2.5-4.9)
[2017-06-09 06:41] LABS: ALBUMIN 3.4 g/dl (3.3-4.9); ALBUMIN/GLOBULIN RATIO 0.87; BILIRUBIN,INDIRECT 0.3 mg/dl (0-1.1); BILIRUBIN,TOTAL 0.3 mg/dl (0.2-1.3); CALCIUM 9.1 mg/dl (8.4-10.2); CREATININE 0.74 mg/dl (0.61-1.24); POTASSIUM 4.3 mmol/L (3.5-5.1); TOTAL PROTEIN 7.3 g/dl (6.1-8.1)
[2017-06-09 08:21] VITALS: BP 127/70; PULSE 90; RESP 14
[2017-06-09] MEDS: SOD CHLORIDE 0.9% 1,000 ML IV SCH (08:53)
[2017-06-09] MEDS: CIPROFLOXACIN 400MG/D5W 200 ML IVPB SCH (08:53)
[2017-06-09] MEDS: NYSTATIN SUSP 5 ML CUP PO SCH ×2 (08:54→12:39)
[2017-06-09] MEDS: FLUCONAZOLE 100 MG TAB PO SCH (08:54)
[2017-06-09] MEDS: HEPARIN 5,000 UNIT/0.5 ML VIAL SC SCH (08:56)
--- NOTE | 2017-06-09 10:59 | PDOCDIS ---
Discharge Instructions DIAGNOSIS Discharge Diagnosis Salmonellosis. CONDITION Patient Condition: Stable HOME CARE INSTRUCTIONS: Diet Instructions: RegularSpecial Diet: Regular FOLLOW UP/APPOINTMENTS Follow-up Plan Jose Gonzalez MD Specialty: Internal Medicine Office Address: [address] [place], [place] [id number] Office OTHER ORDERS: Other Orders: 1. Take a regular diet as tolerated. 2. Complete course of antibiotics. 3. Resume activities as tolerated. 4. Follow-up with the primary care physician in 1 week. If you do not have a primary care physician, please call Dr. Jose Gonzalez's office. DAX SEGUNDO NP Jun 09, 2017 10:59
[2017-06-09] MEDS ORDERED: CIPR500T4 PO (11:04)
--- NOTE | 2017-06-09 12:54 | DS ---
DATE OF ADMISSION: 06/03/2017 DATE OF DISCHARGE: 06/09/2017 FINAL DIAGNOSES: 1. Status post sepsis secondary to Salmonella bacteremia. 2. Transaminitis. 3. Obesity. CONSULTANTS: Mookie Velasco MD, Infectious Diseases. HOSPITAL COURSE: This is a 47-year-old male who presented to the emergency department complaining of fever, diarrhea, epigastric abdominal pain, myalgia and right upper extremity tingling/numbness. The patient was evaluated in the ER on 06/01/2017 where he had blood cultures drawn and blood cultures from 06/01/2017 were showing Salmonella species. The patient was also noticed to have some transaminitis without hyperbilirubinemia upon admission. The patient had lactic acidosis. The patient was also noted to be hyponatremic. The patient was admitted to inpatient telemetry floor. The patient was started on appropriate antibiotics. Infectious Disease consult was obtained. The patient's repeat blood cultures remained negative. The patient's stool studies remained negative. The patient's stool for occult blood was negative. The patient's throat culture showed Manasa albicans. The etiology of the patient's transaminitis could be from underlying sepsis. The patient underwent a CT scan of the abdomen and pelvis that was negative for any acute intra-abdominal findings. The patient also had a gallbladder ultrasound that was done on 06/01/2017 that was negative for any acute findings. The patient's LFTs have improved throughout the patient's hospital course. The patient has no evidence of any hyperbilirubinemia. The patient was cleared by Infectious Disease to be discharged home on oral antibiotics. The patient had a stable hospital course. DISCHARGE DISPOSITION/PLAN: The patient will be discharged home today. The patient was instructed to take a regular diet as tolerated. The patient was instructed to complete the course of antibiotics. The patient was instructed to resume activities as tolerated. The patient was instructed to follow up with his primary care physician in 1 week and if he does not have a primary care physician, to please call Dr. Jose Gnozalez's office. The patient verbalized understanding of his discharge instructions. DISCHARGE CONDITION: Stable. DISCHARGE MEDICATIONS: Cipro 500 mg p.o. b.i.d. x7 days. PERTINENT LABORATORY AND DIAGNOSTIC DATA: 1. CT scan of the abdomen and pelvis. Benign right renal cyst. Status post appendectomy. Short segment thickening of the wall of the terminal ileum with small amount of adjacent free fluid and multiple adjacent mildly enlarged lymph nodes. This may indicate an inflammatory or infectious process. 2. Chest x-ray. No active cardiopulmonary disease. 3. Blood culture on current admission x2. Negative. 4. Throat culture. Positive for Manasa albicans. 5. Stool for Clostridium difficile. Negative. 6. Latest CBC, WBC 4.6, hemoglobin 14.8, hematocrit 40.3, platelet count 300. 7. Latest CMP, sodium 135, potassium 4.2, chloride 103, carbon dioxide 25, anion gap 11, BUN 8, creatinine 0.74, glucose 105, calcium 9.1, phosphorus 3.7, magnesium 2.0, total bilirubin 0.2, indirect bilirubin 0.3, AST 109, ALT 239, AST 249. 8. HIV 1 and 2 antibody negative. At this time I would like to thank all the consultants for seeing the patient and providing clinical recommendations. The case and management of this patient was fully discussed with Dr. Ghulam Godoy. Approximately 35 minutes were spent on coordinating the discharge on this patient. Dictated By: Erick Paiz NP /berny/parker /Document#: [id number] MATILDE
== END 2017-06-09 13:45 | disposition home or self-care (01) | DRG 872 ==
LOC: FTE 20:07 → TEL 06-03 01:39 → MS2 06-06 14:00
PROVIDERS: ADMIT Internal Medicine; ATTEND Internal Medicine
DX: A02.1 Salmonella sepsis (principal); E87.2 Acidosis; E87.1 Hypo-osmolality and hyponatremia; B37.0 Candidal stomatitis; A02.0 Salmonella enteritis; R79.89 Other specified abnormal findings of blood chemistry; E66.9 Obesity, unspecified; R74.0 Nonspecific elevation of levels of transaminase and lactic acid dehydrogenase [LDH]; Z68.31 Body mass index [BMI] 31.0-31.9, adult
CPT/HCPCS: 36415; 71010; 74177; 80048; 80053; 81003; 82270; 83605; 83690; 83735; 84100; 84484; 85025; 85610; 85730; 86308; 86703; 86803; 87040; 87045; 87075; 87086; 87205; 87340; 87430; 87591; 87880; 93005; 96365; 96367; 96375; J0744; J1335; J1644; J1885; J2185; J2270; J2405; J3370; J7030; J7060; Q9967

== ENCOUNTER → 2017-06-23 | Outpatient (CLI) | payer MEDICAID ==
[~2017-06-23] VITALS: Ht 175.3 cm; Wt 92.7 kg
[~2017-06-23] MED LIST changes: -ACET-141 PO; -CIPR500T21 PO; +CIPR500T4 PO; -IBUP-1542 PO
[2017-06-23 11:17] VITALS: Ht 175.3 cm; Wt 92.7 kg
[2017-06-23 11:18] VITALS: BP 129/85; PULSE 78; RESP 16
--- NOTE | 2017-06-23 12:00 | PN ---
Date/Time of Note Date/Time of Note DATE: 06/23/17 TIME: 11:56 Outpatient Progress Note Chief Complaint Sepsis/abdominal pain/hyponatremia HPI Sepsis/patient had sepsis, and bacteremia, patient was recently hospitalized, patient denies any fever chill, no rash, Abdominal pain/patient has abnormal LFT, and had abdominal pain, improving, minimal abdominal discomfort, Hyponatremia/patient had a hyponatremia, much improved, no leg cramps, Renal status patient had a CAT scan which showed patient had urinalysis, no hematuria, Review of Systems Const: No Fever, no chills, no Wt. loss, no Fatigue, normal appetite, no diaphoresis. Eyes: No pain, no discharge, no redness, no visual change, no foreign body. ENT: No pain, no bleeding, no congestion, no sore throat, no dysphagia, no discharge or rhinitis. Lymph: No adenopathy, no tender nodes, no lymphedema. Resp: No SOB, no cough, no sputum, no wheezing, no chest pain. CV: No chest pain, no palpitaions, no MONET, no PND, no edema. GI: Normal appetite, minimal abdominal pain, 1 out of 10, no nausea, no vomiting , no diarrhea, no blood, no constipation. : No frequency, no urgency, no dysuria, no hematuria, no flank pain, no discharge, no bleeding. Musc: No bone/joint pain, no back pain, no neck pain, no knee pain, no restricted ROM. Skin: No rash, no skin lesions, no erythema, no laceration, no bruising, no pruritus. Neuro: No LIRIANO, no dizziness, no syncope, no seizure, no focal-weakness. Endo: No polyuria, no polydypsia, no dry-skin, no temp-intolerance. Psych: No hallucinations, no depression, no anxiety, no suicidal ideation. Ext: No edema, no pain, no ulcer, no weakness. Physical Exam Vital Signs Date Time Temp Pulse Resp B/P Pulse Ox O2 Delivery O2 Flow Rate FiO2 06/23/17 11:18 97.9 78 16 129/85 99 Room Air General Appearance: A 47 year-old male who appears well-developed, well- nourished, in no acute distress. HEENT: Head normocephalic, atraumatic. Pupils equal, round, reactive to light and accommodate. Sclerae are no jaundice. Nasal turbinates pink without erythema or nasal discharge. Mucous membranes pink and moist without lesions. Oropharynx clear without any exudate or discharge. NECK: Supple. Trachea midline, No thyromegaly, No cervical lymphadenopathy, No mass, No carotid bruits, No JVD, Carotid pulses 2+ bilaterally. PULMONARY: Clear to auscultaion bilaterally, No retractions, Chest expansion symmetric bilaterally, no rales, no ronchi, no dulness on percussion. CARDIAC: Normal SI and S2, Regular rate and rythm, no murmur, gallop, or rub. GASTROINTESTINAL: Abdomen is soft, minimal abdominal discomfort, Non Rigid, No distention, Positive bowel sounds x4 quadrants, Liver normal. SKIN: Warm, dry, no rash, no bruise, no echmosis. EXTREMITIES: Bilateral lower extremities normal, no edema, no phlabitus, pulse palpable, no contracture. MUSCULOSKELETAL: Spine Normal, Non-tender, Normal range of motion, No swelling, no deformity, no clubbing, or cyanosis, the patient has no edema to bilateral lower extremities, dorsalis pedis pulses palpable bilaterally. NEUROLOGIC: The patient is awake, alert, oriented, responding to yes/no questions appropriately, moving all extremities, cranial nerve intact, normal strenght, normal power, normal coordination, normal gait. Allergies Coded Allergies: Penicillins (Verified Allergy, Severe, hallucinatiion, dizziness, chest pain, 06/01/17) H Sepsis/Salmonella bacteremia/abnormal LFT/hyponatremia/obesity/renal cyst Social Hx No smoking or drinking, Family Hx Noncontributory Patient History: Hypertension 34 FATHER Assessment/Plan Impression Sepsis/bacteremia/abdominal pain improving/hyponatremia improved Plan Patient education done about sepsis, patient also educated about Salmonella poisoning, and bacteremia, Patient has completed antibiotic, patient does not have any sign or symptom of infection at present, Patient will follow with the primary care physician, Patient advised to lose weight, Medications Home Meds Discontinued Scripts Ciprofloxacin Hcl* (Ciprofloxacin Hcl*) 500 Mg Tablet, 500 MG PO BID for 7 Days , #14 TAB Prov:DAX SEGUNDO NP 06/09/17 JEAN PIERRE SMYTH MD Jun 23, 2017 12:00
== END | disposition home or self-care (01) ==
LOC: DCC 11:07
PROVIDERS: ATTEND Internal Medicine
DX: R10.9 Unspecified abdominal pain (principal); R78.81 Bacteremia; E87.1 Hypo-osmolality and hyponatremia; Z88.0 Allergy status to penicillin

== ENCOUNTER 2017-09-30 21:31 | Emergency (ER) | END 2017-10-01 02:32 | disposition home or self-care (01) ==

== ENCOUNTER 2018-01-13 22:45 | Emergency (ER) | END 2018-01-14 03:49 | disposition home or self-care (01) ==

== ENCOUNTER 2018-04-15 11:02 | Emergency (ER) | END 2018-04-15 12:31 | disposition home or self-care (01) ==

== ENCOUNTER 2018-09-11 02:51 | Emergency (ER) | END 2018-09-11 04:19 | disposition home or self-care (01) ==

== ENCOUNTER 2018-09-17 13:43 | Emergency (ER) | payer MEDICAID ==
[~2018-09-17] VITALS: Wt 99.8 kg
[~2018-09-17 13:43] MED LIST changes: +ALBU8.5H8 INH; +AZIT250T PO; -CIPR500T4 PO; +FAMO-96 PO; +HYDR-4011 PO; +IBUP800T48 PO; +NAPR-985 PO; +SULF1TAB31 PO
[2018-09-17 13:45] VITALS: BP 122/82; PULSE 85; RESP 19
[2018-09-17] MEDS ORDERED: HC30CR25 TOP (14:50)
--- NOTE | 2018-09-17 14:59 | ERD ---
ER Documentation Chief Complaint Chief Complaint bib self, cc: rash on both elbows for 3 days HPI 48-year-old male. Patient presents with several days of rash to the bilateral elbows that is scaly, patchy and pruritic. No recent exposures or medications. The patient is not currently working. No recent trauma. Patient occasionally gets scaling patches in his bilateral knees but none recently. No fevers or chills, spreading rash. He has not tried anything to help with the symptoms. During the patient's encounter translation services were utilized Language: Irish Source: Family ROS All systems reviewed and are negative except as per history of present illness. Medications Home Meds Active Scripts Hydrocortisone* Topical (Hydrocortisone* Topical) 2.5%-28.3 Gm Cream..g., 1 APPLIC TOP BID for 7 Days, TUB Prov:DARÍO BARBER MD 09/17/18 Hydrocodone/Acetaminophen (Fletcher 5-325 Tablet) 1 Each Tablet, 1 TAB PO Q6H PRN for PAIN, #7 TAB Prov:PASILABANJERRYSHAQ F 09/11/18 Ibuprofen* (Motrin*) 800 Mg Tab, 800 MG PO Q6H PRN for PAIN LEVEL 1-5, #30 TAB Prov:PASILABANJERRYAR F 09/11/18 Azithromycin* (Zithromax*) 250 Mg Tablet, 250 MG PO .ZPACK DIRECTED, #6 TAB TAKE 500 MG (2 TABS) THE FIRST DAY THEN 250 MG (1 TAB) DAYS 2-5 Prov:PASILAKUMARJERRYAR F 09/11/18 Sulfamethoxazole/Trimethoprim* (Bactrim Ds* Tablet) 1 Each Tablet, 1 TAB PO BID for 7 Days, #14 TAB Prov:PASILABANJERRYAR F 09/11/18 Famotidine* (Pepcid*) 20 Mg Tablet, 20 MG PO BID for 10 Days, #20 TAB Prov:RC,LUIS ANGEL 01/14/18 Naproxen* (Naprosyn*) 500 Mg Tablet, 500 MG PO BID PRN for PAIN AND/OR INFLAMMATION for 10 Days, #20 TAB Prov:RC,LUIS ANGEL 01/14/18 Albuterol Sulfate* (Proair HFA*) 8.5 Gm Hfa.aer.ad, 2 PUFF INH Q4, #1 INHALER Prov:POPPY SETHI MD 10/01/17 Allergies Allergies: Coded Allergies: Penicillins (Verified Allergy, Severe, hallucinatiion, dizziness, chest pain, 09/30/17) PMhx/Soc History of Surgery: Yes (appendectomy) Anesthesia Reaction: No Hx Neurological Disorder: Yes (numbness) Hx Respiratory Disorders: No Hx Cardiac Disorders: Yes (high cholesterol) Hx Psychiatric Problems: No Hx Miscellaneous Medical Probl: No Hx Alcohol Use: Yes (socially) Hx Substance Use: No Hx Tobacco Use: No Smoking Status: Never smoker FmHx Family History: No diabetes Physical Exam Vitals Vital Signs Date Temp Pulse Resp B/P (MAP) Pulse Ox O2 O2 Flow FiO2 Time Delivery Rate 09/17/18 98.3 85 19 122/82 100 13:45 (95) Physical Exam General: Well developed, well nourished, no acute distress Head: Normocephalic, atraumatic. Eyes: EOM intact ENT: Moist mucous membranes Neck: Full ROM Respiratory: No respiratory distress Cardiovascular: Well perfused distally Abdominal: Nondistended : Deferred MSK: No edema, no unilateral swelling, 5/5 strength Neurologic: Alert and oriented, moving all extremities, normal speech, steady gait Skin: Scaling, patchy, slightly erythematous rash to the bilateral elbows. No o ther lesions noted on the extremities. No petechia or purpura. Psych: Normal mood Procedures/MDM Clinical exam consistent with localized dermatitis, consider eczema. Topical steroid seem reasonable. No signs or symptoms concerning for bursitis or cellulitis. The patient can be referred to a microfilm clerk if symptoms persist. The patient is otherwise extremely well-appearing without signs or symptoms concerning for systemic illness. Departure Diagnosis: Primary Impression: Dermatitis Additional Impression: Eczema Eczema type: unspecified Qualified Codes: L30.9 - Dermatitis, unspecified Condition: Good Patient Instructions: Dermatitis, Non-Specific Referrals: CHRISTA BUSTAMANTE MD, [facility] Usted se guerin hecho un examen mdico de control que le indica que no est en angie condicin que requiera tratamiento urgente en el Departamento de Emergencia. Un estudio ms profundo y el tratamiento de de la cruz condicin pueden esperar sin ningn riesgo hasta que usted sea atendida/o en el consultorio de de la cruz mdico o angie clnica. Es responsabilidad suya arreglar angie isaura para el seguimiento del reagan. MANEJO DE CONDICIONES NO URGENTES EN EL FUTURO 1) Si usted tiene un mdico de atencin primaria: Usted debera llamar a de la cruz mdico de atencin primaria antes de venir al departamento de emergencia. Despus de las horas de consultorio, de la cruz doctor o de la cruz asociado/a est disponible por telfono. El mdico o enfermero de venu en el servicio telefnico puede asesorarle por candy medio para atender el problema, o reagan contrario se puede programar angie isaura. 2) Si usted no tiene un mdico de atencin primaria: Llame al mdico o clnica de referencia que aparece abajo angela las horas de consultorio para hacer angie isaura para que le vean. CLINICAS: [facility] [phone] [facility] [phone] [facility]. [facility] [[email or web address]] [phone] [facility]. [place] [phone] [facility]. [place] [phone] [facility]. [phone] [address] [facility] () Usted se guerin hecho un examen mdico de control que le indica que no est en angie condicin que requiera tratamiento urgente en el Departamento de Emergencia. Un estudio ms profundo y el tratamiento de de la cruz condicin pueden esperar sin ningn riesgo hasta que usted sea atendida/o en el consultorio de de la cruz mdico o angie clnica. Es responsabilidad suya arreglar angie isaura para el seguimiento del reagan. MANEJO DE CONDICIONES NO URGENTES EN EL FUTURO 1) Si usted tiene un mdico de atencin primaria: Usted debera llamar a de la cruz mdico de atencin primaria antes de venir al departamento de emergencia. Despus de las horas de consultorio, de la cruz doctor o de la cruz asociado/a est disponible por telfono. El mdico o enfermero de venu en el servicio telefnico puede asesorarle por candy medio para atender el problema, o reagan contrario se puede programar angie isaura. 2) Si usted no tiene un mdico de atencin primaria: Llame al mdico o condado institucions de referencia que aparece abajo angela las horas de consultorio para hacer angie isaura para que le vean. SI USTED NO PUEDE PAGAR PARA DARIEL UN MEDICO puede ir a: [facility] [address] [place] [address] [facility] [address] [place] [address] [facility] [address] [place] [address] [facility] [facility] [address] [place], [place] [phone] Additional Instructions: Llame al doctor nombrado abajo (Referral Sources) MAANA y tea angie ISAURA PARA DENTRO DE ANGIE SEMANA. Dgale a la secretaria que nosotros le instruimos hacer esta isaura.Avise o llame si de la cruz condicin se empeora antes de la isaura. DARÍO BARBER MD Sep 17, 2018 14:59
== END 2018-09-17 15:30 | disposition home or self-care (01) ==
LOC: FTE 13:43
DX: L30.9 Dermatitis, unspecified (principal)
CPT/HCPCS: 99282

== ENCOUNTER 2018-11-20 09:06 | Emergency (ER) | payer SELFPAY ==
[~2018-11-20] VITALS: Ht 167.6 cm; Wt 100.9 kg
[~2018-11-20 09:06] MED LIST changes: +HC30CR25 TOP
[2018-11-20 09:14] VITALS: Ht 167.6 cm; Wt 100.9 kg
[2018-11-20] MEDS ORDERED: SOD CHLORIDE 0.9% 1,000 ML IV STA (09:50)
--- NOTE | 2018-11-20 10:40 | ERD ---
ER Documentation Chief Complaint Chief Complaint Complains of chest pain since this am HPI Patient is a 48-year-old male with no medical problems who presents with palpitations. He said that his palpitations started last night. He is also complaining of left-sided chest pain as well. He had constant symptoms since last night. He felt short of breath. Upon review of old medical records this is the patient's ninth visit to the ER since 2014. He does not currently have a primary doctor. ROS All systems reviewed and are negative except as per history of present illness. Medications Home Meds Discontinued Scripts Hydrocortisone* Topical (Hydrocortisone* Topical) 2.5%-28.3 Gm Cream..g., 1 APPLIC TOP BID for 7 Days, TUB Prov:DARÍO BARBER MD 09/17/18 Hydrocodone/Acetaminophen (Whitman 5-325 Tablet) 1 Each Tablet, 1 TAB PO Q6H PRN for PAIN, #7 TAB Prov:PASILABAN,JERRYAR F 09/11/18 Ibuprofen* (Motrin*) 800 Mg Tab, 800 MG PO Q6H PRN for PAIN LEVEL 1-5, #30 TAB Prov:PASILABAN,JERRYAR F 09/11/18 Azithromycin* (Zithromax*) 250 Mg Tablet, 250 MG PO .ZPACK DIRECTED, #6 TAB TAKE 500 MG (2 TABS) THE FIRST DAY THEN 250 MG (1 TAB) DAYS 2-5 Prov:PASILABANJERRYAR F 09/11/18 Sulfamethoxazole/Trimethoprim* (Bactrim Ds* Tablet) 1 Each Tablet, 1 TAB PO BID for 7 Days, #14 TAB Prov:PASILABANJERRYAR F 09/11/18 Famotidine* (Pepcid*) 20 Mg Tablet, 20 MG PO BID for 10 Days, #20 TAB Prov:RC,LUIS ANGEL 01/14/18 Naproxen* (Naprosyn*) 500 Mg Tablet, 500 MG PO BID PRN for PAIN AND/OR INFLAMMATION for 10 Days, #20 TAB Prov:RC,LUIS ANGEL 01/14/18 Albuterol Sulfate* (Proair HFA*) 8.5 Gm Hfa.aer.ad, 2 PUFF INH Q4, #1 INHALER Prov:POPPY SETHI MD 10/01/17 Allergies Allergies: Coded Allergies: Penicillins (Verified Allergy, Severe, hallucinatiion, dizziness, chest pain, 11/20/18) PMhx/Soc History of Surgery: Yes (appendectomy) Anesthesia Reaction: No Hx Neurological Disorder: Yes (numbness) Hx Respiratory Disorders: No Hx Cardiac Disorders: Yes (high cholesterol) Hx Psychiatric Problems: No Hx Miscellaneous Medical Probl: No Hx Alcohol Use: Yes (socially) Hx Substance Use: No Hx Tobacco Use: No Smoking Status: Never smoker FmHx Family History: No coronary disease Physical Exam Vitals Vital Signs Date Temp Pulse Resp B/P (MAP) Pulse Ox O2 O2 Flow FiO2 Time Delivery Rate 11/20/18 98.2 83 17 140/94 99 Room Air 10:31 (109) 11/20/18 98.2 100 20 154/101 97 09:14 (118) Physical Exam Const: No acute distress Head: Atraumatic Eyes: Normal Conjunctiva ENT: Normal External Ears, Nose and Mouth. Neck: Full range of motion. No meningismus. Resp: Clear to auscultation bilaterally Cardio: Regular rate and rhythm, no murmurs Abd: Soft, non tender, non distended. Normal bowel sounds Skin: No petechiae or rashes Back: No midline or flank tenderness Ext: No cyanosis, or edema Neur: Awake and alert Psych: Normal Mood and Affect Result Diagram: 11/20/18 0949 11/20/18 0949 Results 24 hrs Laboratory Tests Test 11/20/18 09:49 White Blood Count 6.3 10^3/ul Red Blood Count 5.75 10^6/ul Hemoglobin 17.3 g/dl Hematocrit 50.0 % Mean Corpuscular Volume 87.0 fl Mean Corpuscular Hemoglobin 30.1 pg Mean Corpuscular Hemoglobin Concent 34.6 g/dl Red Cell Distribution Width 13.1 % Platelet Count 232 10^3/UL Mean Platelet Volume 10.4 fl Immature Granulocytes % 0.300 % Neutrophils % 47.8 % Lymphocytes % 39.3 % Monocytes % 9.6 % Eosinophils % 2.1 % Basophils % 0.9 % Nucleated Red Blood Cells % 0.0 /100WBC Immature Granulocytes # 0.020 10^3/ul Neutrophils # 3.0 10^3/ul Lymphocytes # 2.5 10^3/ul Monocytes # 0.6 10^3/ul Eosinophils # 0.1 10^3/ul Basophils # 0.1 10^3/ul Nucleated Red Blood Cells # 0.0 10^3/ul Sodium Level 141 mmol/L Potassium Level 4.1 mmol/L Chloride Level 102 mmol/L Carbon Dioxide Level 28 mmol/L Anion Gap 11 Blood Urea Nitrogen 12 mg/dl Creatinine 0.90 mg/dl Est Glomerular Filtrat Rate mL/min > 60 mL/min Glucose Level 100 mg/dl Calcium Level 9.8 mg/dl Troponin I < 0.012 ng/ml Current Medications Medications Dose Sig/Trisha Start Time Status Last (Trade) Ordered Route PRN Stop Time Admin Dose Reason Admin Sodium 1,000 ml @ Q1H STAT 11/20/18 DC 11/20/18 Chloride 1,000 mls/hr IV 09:50 11/20/18 09:58 10:49 Procedures/MDM EKG #1 read by me: Rate/Rhythm: Incomplete right bundle branch block a rate of 90 Intervals: Normal Impression: Incomplete right bundle branch block EKG #2 read by me: Rate/Rhythm: Incomplete right bundle branch block a rate of 83 Intervals: Normal Impression: Incomplete right bundle branch block Chest x-ray read by radiology as negative. Patient is a 48-year-old male who presents with palpitations. He also complains of left-sided chest pain. Laboratory studies are normal at this time. His EKG does show incomplete right bundle branch block but are unchanged. Chest x-ray was negative. At this point I doubt acute coronary syndrome, pneumonia, pneumothorax, pulmonary embolism, or aortic dissection. The patient will be discharged home but will need to follow-up closely with a primary doctor within 24-48 hours. He will be given information for the local clinics as he does not currently have a primary doctor. Departure Diagnosis: Primary Impression: Palpitations Condition: Fair Patient Instructions: Palpitations Ref[facility]: [facility] Usted se guerin hecho un examen mdico de control que le indica que no est en angie condicin que requiera tratamiento urgente en el Departamento de Emergencia. Un estudio ms profundo y el tratamiento de de la cruz condicin pueden esperar sin ningn riesgo hasta que usted sea atendida/o en el consultorio de de la cruz mdico o angie clnica. Es responsabilidad suya arreglar angie isaura para el seguimiento del reagan. MANEJO DE CONDICIONES NO URGENTES EN EL FUTURO 1) Si usted tiene un mdico de atencin primaria: Usted debera llamar a de la cruz mdico de atencin primaria antes de venir al departamento de emergencia. Despus de las horas de consultorio, de la cruz doctor o de la cruz asociado/a est disponible por telfono. El mdico o enfermero de venu en el servicio telefnico puede asesorarle por candy medio para atender el problema, o reagan contrario se puede programar angie isaura. 2) Si usted no tiene un mdico de atencin primaria: Llame al mdico o clnica de referencia que aparece abajo angela las horas de consultorio para hacer angie isaura para que le vean. CLINICAS: [place] [id number] [phone] [facility] [place] [facility] [phone] [id number] [facility] [place]. [facility] [phone] [facility] [place] [id number] [phone] [facility]. [facility] [phone] [id number] [facility]. [phone] [address] Additional Instructions: Llame al doctor MAANA y tea angie ISAURA PARA DENTRO DE 1-2 CHAHAL.Dgale a la secretaria que nosotros le instruimos hacer esta isaura.Avise o llame si de la cruz condicin se empeora antes de la isaura. Regresa aqui si peor o no mejor. MIGUEL PAZ MD Nov 20, 2018 10:40
[2018-11-20 11:05] VITALS: BP 140/96; PULSE 89; RESP 15
== END 2018-11-20 11:06 | disposition home or self-care (01) ==
LOC: E/R 09:06
DX: R00.2 Palpitations (principal)
CPT/HCPCS: 36415; 71045; 80048; 84484; 85025; 93005; 99285; J7030

== ENCOUNTER 2019-06-04 16:36 | Emergency (ER) | payer SELFPAY ==
[~2019-06-04] VITALS: Ht 175.3 cm; Wt 102.6 kg
[~2019-06-04 16:36] MED LIST changes: -ALBU8.5H8 INH; -AZIT250T PO; -FAMO-96 PO; -HC30CR25 TOP; -HYDR-4011 PO; +IBUP-1542 PO; -IBUP800T48 PO; -NAPR-985 PO; -SULF1TAB31 PO
[2019-06-04 16:58] VITALS: BP 165/104; PULSE 75; RESP 18; Ht 175.3 cm; Wt 102.6 kg
== END 2019-06-04 17:37 | disposition home or self-care (01) ==
LOC: E/R 16:36
DX: R30.0 Dysuria (principal)
CPT/HCPCS: 81003; 87591; 99283